=== PATIENT | female | born 1970 | race Caucasian/White ===

== ENCOUNTER 2019-09-16 09:34 | Emergency (ER) | payer BC ==
[2019-09-16 10:29] LABS: Absolute Lymphocytes (CBC) 1.5 K/uL (0.7-4.9); Basophils % 0.8 % (0-1.3); Hematocrit 52.7 % (36.0-45.0); Lymphocytes % 20.8 % (15.3-44.8); MPV 9.2 fL (7.6-11.3); RBC Red Blood Cell Count 5.53 M/uL (3.86-4.86)
[2019-09-16 10:31] LABS: Protime INR 0.96
[2019-09-16 10:46] LABS: ALT/SGPT 23 U/L (12-78); AST/SGOT 17 U/L (15-37); Albumin 4.2 g/dL (3.4-5.0); Alkaline Phosphatase 94 U/L (45-117); BUN Blood Urea Nitrogen 8 mg/dL (7-18); Bicarbonate 28 mmol/L (21-32); Bilirubin Direct 0.2 mg/dL (0-0.2); Bilirubin Total 0.4 mg/dL (0.2-1.0); Glucose Level 110 mg/dL (74-106); Magnesium 1.8 mg/dL (1.8-2.4); NT PRO-BNP 105 pg/mL (<125); Potassium 3.7 mmol/L (3.5-5.1); Protein, Total 8.3 g/dL (6.4-8.2); Sodium Level 137 mmol/L (136-145); Troponin (Emerg Dept Use Only) < 0.02 ng/mL (0.0-0.045)
--- NOTE | 2019-09-16 11:39 | RAD REPORT ---
EXAM DESCRIPTION: Liliya Single View09/16/2019 11:22 am CLINICAL HISTORY: Hypertension COMPARISON: 2017 FINDINGS: The lungs appear clear of acute infiltrate. The heart is normal size IMPRESSION: No acute abnormalities displayed
--- NOTE | 2019-09-16 11:45 | EDPHYS ---
Physician Documentation [facility] Name: Miguel A Shook Age: 49 yrs Sex: Female : 1970 Arrival Date: 09/16/2019 Time: 09:43 Bed 2 Private MD: ED Physician Lincoln Agrawal HPI: 09/15 10:03 This 49 yrs old Female presents to ER via Ambulatory with complaints of High kb Blood Pressure, Dizziness. 10:03 The patient has elevated blood pressure and discovered this at a physician's office. kb Onset: The symptoms/episode began/occurred yesterday. Associated signs and symptoms: Pertinent positives: dizziness, Pertinent negatives: chest pain, dyspnea, headache, lightheadedness, nausea, visual changes, vomiting, weakness. Severity of symptoms: At its worst the blood pressure was 180 mm Hg, in the emergency department the blood pressure is improved, mildly, 160 mm Hg. The patient has not experienced similar symptoms in the past. The patient has not recently seen a physician. Pt reports she went to the ENT yesterday and her bp was "180 over something." States she was feeling dizzy at work and was talking to a coworker about it and they told her she needed to get checked out. Went to [facility] and her bp was "170 over something" so the lady there said she needed to come to the ER. Reports she is not dizzy now. States "I just get dizzy sometimes when I am at work looking at the computer, then looking up and around, like vertigo." Pt denies shortness of breath, chest pain. States she doesn't take her BP routinely so she doesn't know her normal bp. States she has been told that her bp was elevated at prior dr's appointments, but no one ever said anything else about it. . EXTRA HAND: 09:51 LMP 06/2019 iw Historical: - Allergies: 09:51 No Known Allergies; iw - Home Meds: 09:51 None [Active]; iw - PMHx: 09:51 None; iw - PSHx: 09:51 None; iw - Immunization history:: Adult Immunizations not up to date. - Social history:: Smoking status: Patient reports the use of cigarette tobacco products, 3/4 ppd. ROS: 10:03 Constitutional: Negative for fever, chills, and weight loss, ENT: Negative for injury, kb pain, and discharge, Neck: Negative for injury, pain, and swelling, Cardiovascular: Negative for chest pain, palpitations, and edema, Respiratory: Negative for shortness of breath, cough, wheezing, and pleuritic chest pain, Abdomen/GI: Negative for abdominal pain, nausea, vomiting, diarrhea, and constipation, Back: Negative for injury and pain, MS/Extremity: Negative for injury and deformity, Skin: Negative for injury, rash, and discoloration. 10:03 Neuro: Positive for dizziness, headache, Negative for altered mental status, gait disturbance, hearing loss, loss of consciousness, numbness, seizure activity, speech changes, syncope, near syncope, tingling, tinnitus, tremor, visual changes, weakness. Exam: 10:03 Constitutional: This is a well developed, well nourished patient who is awake, alert, kb and in no acute distress. Head/Face: Normocephalic, atraumatic. ENT: Nares patent. No nasal discharge, no septal abnormalities noted. Tympanic membranes are normal and external auditory canals are clear. Oropharynx with no redness, swelling, or masses, exudates, or evidence of obstruction, uvula midline. Mucous membranes moist. Neck: Trachea midline, no thyromegaly or masses palpated, and no cervical lymphadenopathy. Supple, full range of motion without nuchal rigidity, or vertebral point tenderness. No Meningismus. Chest/axilla: Normal chest wall appearance and motion. Nontender with no deformity. No lesions are appreciated. Cardiovascular: Regular rate and rhythm with a normal S1 and S2. No gallops, murmurs, or rubs. Normal PMI, no JVD. No pulse deficits. Respiratory: Lungs have equal breath sounds bilaterally, clear to auscultation and percussion. No rales, rhonchi or wheezes noted. No increased work of breathing, no retractions or nasal flaring. Abdomen/GI: Soft, non-tender, with normal bowel sounds. No distension or tympany. No guarding or rebound. No evidence of tenderness throughout. Back: No spinal tenderness. No costovertebral tenderness. Full range of motion. Skin: Warm, dry with normal turgor. Normal color with no rashes, no lesions, and no evidence of cellulitis. MS/ Extremity: Pulses equal, no cyanosis. Neurovascular intact. Full, normal range of motion. Neuro: Awake and alert, GCS 15, oriented to person, place, time, and situation. Cranial nerves II-XII grossly intact. Motor strength 5/5 in all extremities. Sensory grossly intact. Cerebellar exam normal. Normal gait. 11:10 ECG was reviewed by the Attending Physician. kb Vital Signs: 09:48 BP 162 / 106; Pulse 98; Resp 16; Temp 97.8; Pulse Ox 100% on R/A; Weight 56.7 kg; iw Height 5 ft. 8 in. (172.72 cm); 10:00 BP 169 / 102; mh5 10:15 BP 146 / 104; mh5 10:30 BP 162 / 91; mh5 09:48 Body Mass Index 19.01 (56.70 kg, 172.72 cm) iw MDM: 09:55 Patient medically screened. kb 10:03 Data reviewed: vital signs, nurses notes. Data interpreted: Pulse oximetry: on room air kb is 100 %. Interpretation: normal. 11:42 Counseling: I had a detailed discussion with the patient and/or guardian regarding: the kb historical points, exam findings, and any diagnostic results supporting the discharge/admit diagnosis, lab results, radiology results, the need for outpatient follow up, a family practitioner, to return to the emergency department if symptoms worsen or persist or if there are any questions or concerns that arise at home. ED course: Pt remains asymptomatic at this time. Educated on diagnostics and need to follow up with PCP for BP management. Educated to call today to schedule a follow up appt and to keep BP log until then so Dr Knight can see BP trends. Educated on return precautions. Verbal understanding of all instructions received. . 11:46 Data reviewed: lab test result(s), EKG, radiologic studies. Test interpretation: by ED kb physician or midlevel provider: plain radiologic studies, neg for acute finding. 09/15 10:01 Order name: Basic Metabolic Panel; Complete Time: 10:48 kb 09/15 10:01 Order name: CBC with Diff; Complete Time: 10:35 kb 09/15 10:01 Order name: LFT's; Complete Time: 10:48 kb 09/15 10:01 Order name: Magnesium; Complete Time: 10:48 kb 09/15 10:01 Order name: NT PRO-BNP; Complete Time: 10:48 kb 09/15 10:01 Order name: PT-INR; Complete Time: 10:35 kb 09/15 10:01 Order name: Troponin (emerg Dept Use Only); Complete Time: 10:48 kb 09/15 10:01 Order name: XRAY Chest (1 view); Complete Time: 12:06 kb 09/15 10:01 Order name: EKG; Complete Time: 10:02 kb 09/15 10:01 Order name: Cardiac monitoring; Complete Time: 10:18 kb 09/15 10:01 Order name: EKG - Nurse/Tech; Complete Time: 11:22 kb 09/15 10:01 Order name: IV Saline Lock; Complete Time: 10:18 kb 09/15 10:01 Order name: Labs collected and sent; Complete Time: 10:18 kb 09/15 10:01 Order name: O2 Per Protocol; Complete Time: 10:18 kb 09/15 10:01 Order name: O2 Sat Monitoring; Complete Time: 10:19 kb EC:10 Rate is 68 beats/min. Rhythm is regular. QRS [place] is Normal. OK interval is normal at kb 126 msec. QRS interval is normal at 92 msec. QT interval is normal at 410 msec. Administered Medications: 12:21 Not Given (Physician Discretion): NS 0.9% 1000 ml IV at 1000 ml once iw Disposition: 17:15 Co-signature as Attending Physician, Lincoln Agrawal MD I agree with the assessment and kdr plan of care. Disposition: 09/16/19 11:44 Discharged to Home. Impression: Essential (primary) hypertension. - Condition is Stable. - Discharge Instructions: Hypertension, Sozt-gw-Gksy, How to Take Your Blood Pressure, Tvow-rs-Guhd, DASH Eating Plan, Managing Your Hypertension. - Medication Reconciliation Form, Thank You Letter, Antibiotic Education, Prescription Opioid Use form. - Follow up: Emergency Department; When: As needed; Reason: Worsening of condition. Follow up: Marquise Knight MD; When: 2 - 3 days; Reason: Recheck today's complaints, Continuance of care, Re-evaluation by your physician. Signatures: Dispatcher [employer] EDNV Rajan, Stefani, RN FLOAT-C RN FLOAT-Ckb Rittger, Lincoln, MD MD kdr Wilfrid, Akilah, RN RN iw Corrections: (The following items were deleted from the chart) 12:20 11:44 09/16/2019 11:44 Discharged to Home. Impression: Essential (primary) iw hypertension. Condition is Stable. Forms are Medication Reconciliation Form, Thank You Letter, Antibiotic Education, Prescription Opioid Use. Follow up: Emergency Department; When: As needed; Reason: Worsening of condition. Follow up: Marquise Knight; When: 2 - 3 days; Reason: Recheck today's complaints, Continuance of care, Re-evaluation by your physician. kb
--- NOTE | 2019-09-16 11:45 | ER ---
Nurse's Notes [facility] Name: Miguel A Shook Age: 49 yrs Sex: Female : 1970 Arrival Date: 09/16/2019 Time: 09:43 Bed 2 Private MD: Diagnosis: Essential (primary) hypertension Presentation: 09/15 09:48 Chief complaint: Patient states: had high BP reading at [facility] yesterday and today iw at [facility] was 174/130 pt does not take BP medication normally , has been feeling dizzy today and has mild headache. Coronavirus screen: The patient has NOT traveled to a country currently being monitored by the [facility] within the last 14 days. Proceed with normal triage procedures. The patient has NOT had contact with any known and/or suspected case of coronavirus. Proceed with normal triage procedures. Ebola Screen: Patient negative for fever greater than or equal to 101.5 degrees Fahrenheit, and additional compatible Ebola Virus Disease symptoms Patient denies exposure to infectious person. Patient denies travel to an Ebola-affected area in the 21 days before illness onset. No symptoms or risks identified at this time. Initial Sepsis Screen: Does the patient meet any 2 criteria? No. Patient's initial sepsis screen is negative. Does the patient have a suspected source of infection? No. Patient's initial sepsis screen is negative. Risk Assessment: Do you want to hurt yourself or someone else? Patient reports no desire to harm self or others. 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 - Social history:: Smoking status: Patient reports the use of cigarette tobacco products, 3/4 ppd. Vital Signs: 09:48 BP 162 / 106; Pulse 98; Resp 16; Temp 97.8; Pulse Ox 100% on R/A; Weight 56.7 kg; iw Height 5 ft. 8 in. (172.72 cm); 10:00 BP 169 / 102; mh5 10:15 BP 146 / 104; mh5 10:30 BP 162 / 91; mh5 09:48 Body Mass Index 19.01 (56.70 kg, 172.72 cm) iw ED Course: 09:43 Patient arrived in ED. mr 09:49 Triage completed. iw 09:51 Arm band placed on. iw 09:55 Stefani Tolentino [facility]-C [facility] kb 09:55 Lincoln Agrawal MD is Attending Physician. kb 10:04 Jose De Jesus Ruby, RN is Primary Nurse. jl7 10:19 Inserted saline lock: 20 gauge in right antecubital area, using aseptic technique. ss Blood collected. 10:32 Patient has correct armband on for positive identification. Placed in gown. Bed in low mh5 position. Call light in reach. Warm blanket given. radio performer on. Pulse ox on. NIBP on. 11:23 EKG done, by ED staff, reviewed by Lincoln Agrawal MD. 5 11:30 XRAY Chest (1 view) In Process Unspecified. EDMS 11:44 Marquise Knight MD is Referral Physician. kb Administered Medications: 12:21 Not Given (Physician Discretion): NS 0.9% 1000 ml IV at 1000 ml once iw Outcome: 11:44 Discharge ordered by MD. kb 12:20 Patient left the ED. iw Signatures: Dispatcher [employer] EDMS Stefani Tolentino FNP-C FNJulianne Brinda LewisAkilah, RN SYBIL Stephenie Collado, SYBIL DEVINE Sofiya Kendrick [facility] Jose De Jesus Ruby, RN RN jl7 Corrections: (The following items were deleted from the chart) 09:50 09:48 BP 184 / 117; Pulse 98bpm; Resp 16bpm; Pulse Ox 100% RA; Temp 97.8F; iw iw
[2019-09-16 12:55] VITALS: BP 162/106; TEMP 97.8; O2SAT 100
--- NOTE | 2019-09-16 16:47 | EKG ---
Test Date: 2019-09-16 Test Time: 11:01:37 Label Machine Operator: DINESH MEASUREMENT RESULTS: Intervals: Rate: 68 NM: 126 QRSD: 92 QT: 410 QTc: 435 [place]: P: 72 NM: 126 QRS: 72 T: 73 INTERPRETIVE STATEMENTS: Sinus rhythm with marked sinus arrhythmia Possible Left atrial enlargement Left ventricular hypertrophy Abnormal ECG Compared to ECG 08/25/2017 07:52:49 ST (T wave) deviation no longer present Electronically Signed On 09-16-19 16:47:24 GAS SYSTEMS WORKER by Kayode Hancock
== END 2019-09-16 12:20 | disposition home or self-care (01) ==
LOC: ER 09:34
DX: I10 Essential (primary) hypertension (principal); F17.210 Nicotine dependence, cigarettes, uncomplicated
CPT/HCPCS: 36415; 71045; 80048; 80076; 83735; 83880; 84484; 85025; 85610; 93005; 99284

== ENCOUNTER 2022-03-27 17:40 | Observation (INO) | payer BC ==
--- OUTSIDE RECORDS SUMMARY | 2022-03-27 17:44 | XMS REPORT | Continuity of Care Document ---
:1970 Author Organization [facility] t Address [address] [place] [address] Care Team Providers Name Role Phone Marquise Knight Primary Care Physician Doctor Unassigned, [place] Attending Clinician Unavailable Kai BARAHONA, Jack Attending Clinician Dario BARAHONA, [facility] Attending Clinician Payers Payer Name Policy Type Policy Number Effective Date Expiration Date S ource Problems Condition Condition Condition Status Onset Resolution Last Treating Co mments Source Name Details Category Date Date Treatment Clinician Date Renal Renal Disease Active Univers artery artery 9-15 ity [place] ro[place]sis 00 [facility] Hyperlipid Hyperlipid Disease Active U nivers emia, emia, 915 ity of unspecifie [place] 00 Medical hyperlipid hyperlipid Br anch emia type emia type Essential Essential Disease Active Uni vers hypertensi hypertensi 9-15 it y of on on 00:00: [address] PAD PAD Disease Active Univers (periphera (periphera 3-09 it y of l artery l artery 00:00: [place] disease) disease) 00 Medica l Branch Cigarette Cigarette Disease Active Uni vers smoker smoker 3-09 ity of 00:00: [place] [facility] Allergies, Adverse Reactions, Alerts Allergy Allergy Status Severity Reaction(s) Onset Inactive Treating Comm ents Source Name Type Date Date Clinician Doe Sheriff Active Other - See U nivers tin ty to comments 4-12 ity of adverse 00:00: [place] reaction 00 [facility] s Branch Atorscootert Irmaensi Active Swelling Univ ers atin ty to 9-15 ity of adverse 00:00: [place] reaction 00 Medical s Branch Social History Social Habit Start Date Stop Date Quantity Comments Source History of tobacco Cigarette Smoker [facility] of use Medicine Sex Assigned [facility] [place] [employer] [facility] Exposure to 2021-11-06 2021-11-16 Not sure University SARS-CoV-2 (event) 00:00:00 08:02:00 [facility] Alcohol intake 2021-03-28 2021-03-28 Current drinker Unive rsity of 00:00:00 00:00:00 of alcohol [facility] (finding) [place] Tobacco use and 2020-06-07 2020-06-07 Never used Universit y of exposure 00:00:00 00:00:00 [facility] Cigarettes smoked 2019-09-15 2019-09-15 [facility] (pack per 00:00:00 00:00:00 Medicin e day) - Reported Cigarette 2019-09-15 2019-09-15 [facility] of pack-years 00:00:00 00:00:00 Medicine Smoking Status Start Date Stop Date Source Current every day smoker 2019-09-15 00:00:00 [facility] Medications Ordered Filled Start Stop Current Ordering Indication Dosage Frequency Signature Comments Components Source Medication Medication Date Date Medication? Clinician (SIG) Name Name evolocumab Yes [id number] 140mg inject 140 Univers (REPATHA 5-20 mg under ity of SYRINGE) 00:00: the skin [place] 140 mg/mL 00 every 2 Medical Syrg (two) Branch weeks. evolocumab Yes [id number] 140mg inject 140 Univers (REPATHA 5-20 mg under ity of S[place]INGE) 00:00: the skin [place] 140 mg/mL 00 every 2 Medical Syrg (two) Branch weeks. amLODIPine Yes [id number] 10mg Take 1 U nivers 10 mg 4-12 tablet by ity of tablet 00:00: mouth [place] 00 daily. Medical Branch metoprolol Yes [id number] 50mg Take 1 U nivers succinate 4-12 tablet by ity o f XL 50 mg 24 00:00: mouth [place] hr tablet 00 daily. Medical Branch lisinopriL Yes [id number] 20mg Take 1 Univers 20 mg 4-12 tablet by ity of tablet 00:00: mouth [place] 00 daily. Medical Branch amLODIPine Yes [id number] 10mg Take 1 U nivers 10 mg 4-12 tablet by ity of tablet 00:00: mouth [place] 00 daily. Medical Branch metoprolol Yes [id number] 50mg Take 1 U nivers succinate 4-12 tablet by ity o f XL 50 mg 24 00:00: mouth [place] hr tablet 00 daily. Medical Branch lisinopriL Yes [id number] 20mg Take 1 Univers 20 mg 4-12 tablet by ity of tablet 00:00: mouth [place] 00 daily. Medical Branch aspirin 81 2019-07 Yes [id number] 81mg Take 1 Univers mg EC 2-09 4100 tablet by ity of tablet 00:00: mouth [place] 00 daily. Medical Branch aspirin 81 2019-07 Yes [id number] 81mg Take 1 Univers mg EC 2-09 4100 tablet by ity of tablet 00:00: mouth [place] 00 daily. Medical Branch ciprofloxac 2018-07 Yes Apply 4 [place] estrella in-dexameth 2-11 drops in [place] ege asone 00:00: right ear of (CIPRODEX) 00 twice a Medici n otic day for 10 e suspension days. Vital Signs Vital Name Observation Time Observation Value Comments Source Body height 2019-09-15 23:03:00 172.7 cm [facility] Body weight 2019-09-15 23:03:00 52.164 kg [facility] BMI 2019-09-15 23:03:00 17.49 kg/m2 [facility] Respiratory rate 2019-09-15 23:03:00 18 /min [facility] Procedures Procedure Date / Time Performing Clinician Source Performed MEDICATION CORRESPONDENCE 2021-12-17 05:01:00 Doctor Unassigned, [facility] [place] [facility] Plan of Care Planned Activity Planned Date Details Comments Source Future Scheduled Test COLON CANCER SCREENING: [facility] COLONOSCOPY [code = Medicine COLON CANCER SCREENING: COLONOSCOPY] Future Scheduled Test MAMMOGRAM ANNUAL [code [facility] = MAMMOGRAM ANNUAL] Medicine Future Scheduled Test TETANUS SHOT (ADULT) [facility] [code = TETANUS SHOT Medicin e (ADULT)] Future Scheduled Test BMI FOLLOW UP PLAN [facility] [code = BMI FOLLOW UP Medici ne PLAN] Future Scheduled Test HIV SCREENING [code = [facility] HIV SCREENING] Medicine Future Scheduled Test CERVICAL CANCER [facility] SCREENING 3 YEAR FOLLOW [facility] cine UP [code = CERVICAL CANCER SCREENING 3 YEAR FOLLOW UP] Future Scheduled Test FLU VACCINE > 6 MONTHS [facility] [code = FLU VACCINE > 6 Medi cine MONTHS] Encounters Start End Encounter Admission Attending Care Care Encounter Source Date/Time Date/Time Type Type Clinicians Facility Department ID 2021-12-17 2021-12-17 Orders Doctor BA [id number] Univers 00:00:00 00:00:00 Only Unassigned, AMADO [id number] ity of [place] [facility] [id number] Moses as [id number] [facility] rafael 009 Branch 2021-12-03 2021-12-03 Telephone [facility], [facility] [id number] Univers 00:00:00 00:00:00 Jack WATSON [id number] [place]y [id number] [id number] Mo dical NAL [address] [facility] 2019-09-15 2019-09-15 Office MELISSA Bishop [id number] [facility] [place] 14:51:56 17:14:06 Visit [facility] AMBULATOR [id number] [employer] Y [id number] of [phone] [facility] zuleima 800 e Results This patient has no known results.
[2022-03-27] MEDS ORDERED: ONDANSETRON 4 MG/2 ML VIAL ONE (21:56)
[2022-03-27] MEDS ORDERED: MORPHINE 4 MG/ML SYR ONE (21:56)
[2022-03-27] MEDS ORDERED: NA CHLORIDE 0.9% 1,000 ML ONE (21:56)
[2022-03-27 22:02] LABS: Absolute Lymphocytes (CBC) 1.9 K/uL (0.7-4.9); Hematocrit 43.7 % (36.0-45.0); Lymphocytes % 25.2 % (15.3-44.8); MPV 8.5 fL (7.6-11.3); RBC Red Blood Cell Count 4.75 M/uL (3.86-4.86)
[2022-03-27 22:18] LABS: Albumin 3.6 g/dL (3.4-5.0); Bilirubin Total 0.6 mg/dL (0.2-1.0); Potassium 4.1 mmol/L (3.5-5.1); Protein, Total 7.4 g/dL (6.4-8.2)
--- NOTE | 2022-03-27 23:06 | RAD REPORT ---
EXAM DESCRIPTION: CTAbdomen Pelvis W Contrast - 03/27/2022 10:51 pm CLINICAL HISTORY: RLQ abdominal pain COMPARISON: No comparisons TECHNIQUE: CT of the abdomen and pelvis was performed. All CT scans are performed using dose optimization technique as appropriate and may include automated exposure control or mA/KV adjustment according to patient size. FINDINGS: Lower chest: No acute abnormality. Liver: No acute abnormality or suspicious lesions. Biliary: Cholelithiasis. Stomach: No significant focal abnormality. Duodenum: No significant focal abnormality. Pancreas: No significant abnormality. Spleen: No significant abnormality. Adrenal: No suspicious lesions. Kidney/ureter: No hydronephrosis. No renal calculi. Retroperitoneum: No retroperitoneal adenopathy. Vascular: No aneurysm. Atherosclerosis. Bowel: Dilated retrocecal appendix containing fluid and mild periappendiceal stranding.. No bowel obs truction. Peritoneum: No ascites or free air. Bladder: Grossly unremarkable. Reproductive: No adnexal masses. Bones: No acute fracture. Moderate disc height loss L5-S1. Other: n/a IMPRESSION: 1. Mildly dilated appendix suspicious for early or mild acute appendicitis. 2. Cholelithiasis without CT evidence of acute cholecystitis.
--- NOTE | 2022-03-27 23:23 | EDPHYS ---
Physician Documentation [facility] Name: Miguel A Shook Age: 52 yrs Sex: Female : 1970 Arrival Date: 03/27/2022 Time: 17:46 Bed 15 Private MD: ED Physician Lincoln Agrawal HPI: 03/27 23:38 This 52 yrs old Female presents to ER via Ambulatory with complaints of Abdominal Pain, kb Diarrhea, Vomiting. 23:38 The patient presents with abdominal pain right lower quadrant. Onset: The kb symptoms/episode began/occurred yesterday. The symptoms do not radiate. Associated signs and symptoms: Pertinent positives: diarrhea, nausea, Pertinent negatives: fever, vomiting. The symptoms are described as constant. Modifying factors: The symptoms are alleviated by nothing, the symptoms are aggravated by pressure. Severity of pain: At its worst the pain was moderate in the emergency department the pain is unchanged. The patient has not experienced similar symptoms in the past. The patient has been recently seen by a physician: the patient's primary care provider, earlier today, with similar presenting complaints, and was sent to the [facility] Emergency Department for further evaluation. Pt reports diffuse abd pain that started yesterday, today pain has localized to RLQ. Reports diarrhea and nausea. . 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 - Social history:: Smoking status: Patient reports the use of cigarette tobacco products, smokes one pack cigarettes per day. ROS: 23:37 Constitutional: Negative for fever, chills, and weight loss. kb 23:37 Abdomen/GI: Positive for abdominal pain, nausea, diarrhea. 23:37 All other systems are negative. Exam: 23:37 Constitutional: This is a well developed, well nourished patient who is awake, alert, kb and in no acute distress. Head/Face: Normocephalic, atraumatic. ENT: Moist Mucous membranes Cardiovascular: Regular rate and rhythm with a normal S1 and S2. No gallops, murmurs, or rubs. No pulse deficits. Respiratory: Respirations even and unlabored. No increased work of breathing. Talking in full sentences Skin: Warm, dry with normal turgor. Normal color. MS/ Extremity: Pulses equal, no cyanosis. Neurovascular intact. Full, normal range of motion. Neuro: Awake and alert, GCS 15, oriented to person, place, time, and situation. Moves all extremities. Normal gait. Psych: Awake, alert, with orientation to person, place and time. Behavior, mood, and affect are within normal limits. 23:37 Abdomen/GI: Inspection: abdomen appears normal, Bowel sounds: normal, Palpation: soft, in all quadrants, moderate abdominal tenderness, in the right lower quadrant, Indicators: Rovsing's sign is positive. Vital Signs: 19:02 BP 165 / 82; Pulse 62; Resp 16; Temp 98.1(TE); Pulse Ox 99% on R/A; Weight 59.87 kg; tp1 Height 5 ft. 8 in. (172.72 cm); 21:44 BP 147 / 97; Pulse 70; Resp 16; Pulse Ox 100% on R/A; Pain 8/10; bm7 22:50 BP 150 / 85; Pulse 74; Resp 16; Pulse Ox 100% on R/A; Pain 5/10; bm7 23:55 BP 129 / 86; Pulse 74; Resp 17 S; Pulse Ox 100% on R/A; lg3 19:02 Body Mass Index 20.07 (59.87 kg, 172.72 cm) tp1 MDM: 20:22 Patient medically screened. kb 23:21 Data reviewed: vital signs, nurses notes. Data interpreted: Pulse oximetry: on room air kb is 100 %. Interpretation: normal. Counseling: I had a detailed discussion with the patient and/or guardian regarding: the historical points, exam findings, and any diagnostic results supporting the discharge/admit diagnosis, lab results, radiology results, the need for further work-up and treatment in the hospital. Physician consultation: Ranjan Carrera MD was contacted at 23:21, regarding admission, consult, patient's condition, and will see patient in inpatient room. 03/27 20:13 Order name: CBC with Diff; Complete Time: 22:41 kb 03/27 20:13 Order name: CMP; Complete Time: 22:22 kb 03/27 20:13 Order name: Lipase; Complete Time: 22:22 kb 03/27 20:22 Order name: CT Abd/Pelvis - IV Contrast Only; Complete Time: 23:11 kb 03/27 23:25 Order name: SARS RAPID; Complete Time: 00:29 lg3 03/27 20:13 Order name: IV Saline Lock; Complete Time: 21:43 kb 03/27 20:13 Order name: Labs collected and sent; Complete Time: 21:43 kb Administered Medications: 21:51 Drug: morphine 4 mg Route: IVP; Infused Over: 4 mins; Site: left antecubital; bm7 23:25 Follow up: Response: No adverse reaction; Marked relief of symptoms lg3 21:51 Drug: Zofran (Ondansetron) 4 mg Route: IVP; Site: left antecubital; bm7 23:25 Follow up: Response: No adverse reaction; Marked relief of symptoms lg3 21:51 Drug: NS 0.9% 1000 ml Route: IV; Rate: 1000 ml; Site: left antecubital; bm7 23:23 Follow up: Response: No adverse reaction; IV Status: Completed infusion; IV Intake: lg3 1000ml 23:52 Drug: Rocephin (cefTRIAXone) 1 grams Route: IV; Rate: calculated rate; Site: left lg3 antecubital; 23:54 Follow up: Response: No adverse reaction; IV Status: Completed infusion; IV Intake: [id number] 23:52 Drug: Flagyl (metroNIDAZOLE) 500 mg Volume: 100 ml; Route: IVPB; Rate: 200 ml/hr; lg3 Infused Over: 30 mins; Site: left antecubital; 23:54 Follow up: Response: No adverse reaction; IV Status: Completed infusion; IV Intake: lg3 100ml Disposition: 03/28 05:55 I agree with the assessment and plan of care. kdr Disposition Summary: 03/27/22 23:22 Hospitalization Ordered Hospitalization Status: Observation kb Provider: Ranjan Carrera Condition: Stable kb Problem: new kb Symptoms: are unchanged kb Bed/Room Type: Standard kb [facility]22 00:28[facility] cg Room Assignment: [facility](03/28/22 00:28) Diagnosis - Unspecified acute appendicitis kb Forms: - Medication Reconciliation Form kb - SBAR form Signatures: Dispatcher [employer] EDStefani Vital, ALKYLATION OPERATORLincoln Rosas MD MD kdr Garcia, Cindy, RN RN Komal Pozo RN RN lg3 Claire Tadeo, SYBIL RN bm7 Molly Gracia RN RN tp1 Corrections: (The following items were deleted from the chart) 00:03/27 23:22 Telemetry/MedSurg (observation) [facility] 03/28 00:03/27 23:22 [facility]
--- NOTE | 2022-03-27 23:23 | ER ---
Nurse's Notes [facility] Name: Miguel A Shook Age: 52 yrs Sex: Female : 1970 Arrival Date: 03/27/2022 Time: 17:46 Bed 15 Private MD: Diagnosis: Unspecified acute appendicitis Presentation: 03/27 19:02 Chief complaint: Patient states: CO diarrhea and ABD pain yesterday. Right sided pain tp1 last night that has gradually gotten worse. reports nausea. Denies vomiting. Coronavirus screen: Vaccine status: Patient reports being unvaccinated. Ebola Screen: Patient negative for fever greater than or equal to 101.5 degrees Fahrenheit, and additional compatible Ebola Virus Disease symptoms Patient denies exposure to infectious person. Patient denies travel to an Ebola-affected area in the 21 days before illness onset. Initial Sepsis Screen:. Risk Assessment: Do you want to hurt yourself or someone else? Patient reports no desire to harm self or others. Onset of symptoms was March 26, 2022. 19:02 Method Of Arrival: Ambulatory tp1 19:02 Acuity: JJ 3 tp1 19:02 Initial Sepsis Screen: Does the patient meet any 2 criteria? No. Patient's initial tp1 sepsis screen is negative. Does the patient have a suspected source of infection? No. Patient's initial sepsis screen is negative. Triage Assessment: 19:05 General: Appears in no apparent distress. uncomfortable, Behavior is calm, cooperative. tp1 Pain: Complains of pain in right lower quadrant Pain does not radiate. Pain currently is 6 out of 10 on a pain scale. Quality of pain is described as sharp, shooting, Is intermittent. Neuro: Level of Consciousness is awake, alert, obeys commands, Oriented to person, place, time, situation. Cardiovascular: Patient's skin is warm and dry. Respiratory: Airway is patent Respiratory effort is even, unlabored. GI: Abdomen is flat, non-distended, Abd is soft Abdomen is tender to palpation in right lower quadrant Reports nausea, Patient currently denies diarrhea, vomiting. 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 - Social history:: Smoking status: Patient reports the use of cigarette tobacco products, smokes one pack cigarettes per day. Screenin:52 Abuse screen: Denies threats or abuse. Nutritional screening: No deficits noted. bm7 Tuberculosis screening: No symptoms or risk factors identified. Fall Risk None identified. Assessment: 21:52 Reassessment: No changes from previously documented assessment. Patient and/or family bm7 updated on plan of care and expected duration. Pain level reassessed. Patient is alert, oriented x 3, equal unlabored respirations, skin warm/dry/pink. 23:55 General: Appears in no apparent distress. comfortable, Behavior is calm, cooperative. lg3 Pain: Complains of pain in right lower quadrant Pain does not radiate. Pain currently is 4 out of 10 on a pain scale. Neuro: No deficits noted. Mariscal Agitation-Sedation Scale (RASS): 0 - Alert and Calm Level of Consciousness is awake, alert, obeys commands, Oriented to person, place, time, situation. Cardiovascular: No deficits noted. Denies chest pain, shortness of breath, Capillary refill < 3 seconds Clubbing of nail beds is absent JVD is absent Patient's skin is warm and dry. Respiratory: No deficits noted. Airway is patent Trachea midline Respiratory effort is even, unlabored, Respiratory pattern is regular, symmetrical, Breath sounds are clear bilaterally. GI: Abdomen is flat, non-distended, Bowel sounds present X 4 quads. Abd is soft X 4 quads Abdomen is tender to palpation in right lower quadrant Reports lower abdominal pain, cramping, nausea. : No deficits noted. No signs and/or symptoms were reported regarding the genitourinary system. EENT: No deficits noted. No signs and/or symptoms were reported regarding the EENT system. Derm: No deficits noted. No signs and/or symptoms reported regarding the dermatologic system. Skin is intact, is healthy with good turgor, Skin is dry, Skin is normal, Skin temperature is warm. Musculoskeletal: No deficits noted. No signs and/or symptoms reported regarding the musculoskeletal system. Circulation, motion, and sensation intact. Range of motion: intact in all extremities. Vital Signs: 19:02 BP 165 / 82; Pulse 62; Resp 16; Temp 98.1(TE); Pulse Ox 99% on R/A; Weight 59.87 kg; tp1 Height 5 ft. 8 in. (172.72 cm); 21:44 BP 147 / 97; Pulse 70; Resp 16; Pulse Ox 100% on R/A; Pain 8/10; bm7 22:50 BP 150 / 85; Pulse 74; Resp 16; Pulse Ox 100% on R/A; Pain 5/10; bm7 23:55 BP 129 / 86; Pulse 74; Resp 17 S; Pulse Ox 100% on R/A; lg3 19:02 Body Mass Index 20.07 (59.87 kg, 172.72 cm) tp1 ED Course: 17:46 Patient arrived in ED. mr 19:04 Triage completed. tp1 19:08 Arm band placed on. tp1 20:11 Stefani Tolentino FNP-C is [facility]. kb 20:11 Lincoln Agrawal MD is Attending Physician. kb 21:14 Claire Tadeo, RN is Primary Nurse. bm7 21:52 No apparent distress. Resting quietly. Awaiting CT Scan. bm7 21:52 Patient has correct armband on for positive identification. Placed in gown. Bed in low bm7 position. Call light in reach. Side rails up X2. Adult w/ patient. Client placed on continuous cardiac and pulse oximetry monitoring. NIBP monitoring applied. Warm blanket given. 21:52 No provider procedures requiring assistance completed. Initial lab(s) drawn, by vt, bm7 sent to lab. Inserted saline lock: 20 gauge in left antecubital area, using aseptic technique. Blood collected. Patient maintains SpO2 saturation greater than 95% on room air. 22:50 Patient moved back from CT. bm7 22:53 CT Abd/Pelvis - IV Contrast Only In Process Unspecified. EDMS 23:22 Ranjan Carrera MD is Hospitalizing Provider. kb 23:52 SARS RAPID Sent. lg3 03/28 01:26 Patient admitted, IV remains in place. intact, No redness/swelling at site. lg3 Administered Medications: 03/27 21:51 Drug: morphine 4 mg Route: IVP; Infused Over: 4 mins; Site: left antecubital; bm7 23:25 Follow up: Response: No adverse reaction; Marked relief of symptoms lg3 21:51 Drug: Zofran (Ondansetron) 4 mg Route: IVP; Site: left antecubital; bm7 23:25 Follow up: Response: No adverse reaction; Marked relief of symptoms lg3 21:51 Drug: NS 0.9% 1000 ml Route: IV; Rate: 1000 ml; Site: left antecubital; bm7 23:23 Follow up: Response: No adverse reaction; IV Status: Completed infusion; IV Intake: lg3 1000ml 23:52 Drug: Rocephin (cefTRIAXone) 1 grams Route: IV; Rate: calculated rate; Site: left lg3 antecubital; 23:54 Follow up: Response: No adverse reaction; IV Status: Completed infusion; IV Intake: [id number] 23:52 Drug: Flagyl (metroNIDAZOLE) 500 mg Volume: 100 ml; Route: IVPB; Rate: 200 ml/hr; lg3 Infused Over: 30 mins; Site: left antecubital; 23:54 Follow up: Response: No adverse reaction; IV Status: Completed infusion; IV Intake: lg3 100ml Medication: 21:52 VIS not applicable for this client. bm7 Intake: 23:23 IV: 1000ml; Total: 1000ml. lg3 23:54 IV: 10ml; Total: 1010ml. lg3 23:54 IV: 100ml; Total: 1110ml. lg3 Outcome: 23:22 Decision to Hospitalize by Provider. 03/28 01:26 Admitted to L \T\ D, accompanied by nurse, via wheelchair, room 270, Report called to sergio Cruz RN Condition: stable Instructed on the need for admit, Demonstrated understanding of instructions. 01:43 Patient left the ED. lg3 Signatures: Dispatcher [employer] EDMS Stefani Tolentino, ALEC BARKSDALEP-Brinda Liu Lacie RN RN lg3 Claire Tadeo, SYBIL DEVINE bm7 Molly Gracia RN RN tp1
[2022-03-27] MEDS ORDERED: CEFTRIAXONE 1000 MG/VIAL ONE (23:50)
[2022-03-27] MEDS ORDERED: METRONIDAZOLE 500mg IVPB 500 MG/100 ML BAG IV ONE (23:50)
[2022-03-28 00:25] LABS: SARS-CoV-2 Antigen Rapid Res Negative (Negative)
[2022-03-28] MEDS ORDERED: MORPHINE 4 MG/ML SYR IV PRN (00:37)
[2022-03-28] MEDS ORDERED: ONDANSETRON 4 MG/2 ML VIAL IV PRN (00:37)
[2022-03-28] MEDS ORDERED: ACETAMINOPHEN 500 MG TAB PO PRN (00:37)
[2022-03-28 01:15] VITALS: BMI 20.3
[2022-03-28] MEDS: NA CHLORIDE 0.9% 1,000 ML IV SCH ×3 (01:19→22:44)
[2022-03-28 05:37] LABS: Absolute Lymphocytes (CBC) 1.7 K/uL (0.7-4.9); Hematocrit 40.9 % (36.0-45.0); Lymphocytes % 34.1 % (15.3-44.8); MCV 92.3 fL (80-100); MPV 8.6 fL (7.6-11.3); RBC Red Blood Cell Count 4.43 M/uL (3.86-4.86)
[2022-03-28] MEDS: CEFTRIAXONE 1,000 MG in NA CHLORIDE 0.9% 50 ML IVPB SCH ×2 (08:40→20:38)
[2022-03-28] MEDS: METRONIDAZOLE 500mg IVPB 500 MG/100 ML BAG IV SCH ×2 (09:49→17:19)
[2022-03-28] MEDS ORDERED: NA CHLORIDE 0.9% 1,000 ML ONE (11:43)
[2022-03-28] MEDS ORDERED: FENTANYL CITR 100 MCG/2 ML ONE (12:13)
[2022-03-28] MEDS ORDERED: propofoL 200 MG/20 ML VIAL IV ONE (12:13)
[2022-03-28] MEDS ORDERED: LIDOCAINE 2% MPF 5 ML VIAL ONE (12:14)
[2022-03-28] MEDS ORDERED: MIDAZOLAM HCL 2 MG/2 ML INJ ONE (12:15)
[2022-03-28] MEDS ORDERED: ONDANSETRON 4 MG/2 ML VIAL ONE ×2 (12:15→14:07)
[2022-03-28] MEDS ORDERED: GLYCOPYRROLATE 0.2 MG/ML SYR ONE ×2 (12:16)
[2022-03-28] MEDS ORDERED: ROCURONIUM 50 MG/5 ML VIAL IV ONE (12:16)
[2022-03-28] MEDS ORDERED: NEOSTIGMINE 1 MG/ML -10 ML VIAL ONE (12:20)
[2022-03-28] MEDS ORDERED: dexAMETHasone 10 MG/ML VIAL ONE (12:23)
--- NOTE | 2022-03-28 12:38 | P.HP ---
Date of Service: 03/28/22 PC: This 52-year-old female presented to emergency room with abdominal pain nausea and vomiting for diagnosis and treatment HPC: Patient admitted recently been traveling. Noticed that she started having abdominal pain. Not specifically located to the right lower quadrant. Pain intensified throughout the day, now hurts even when she walks. Laying still she is fine. 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 No chest pain or palpitations. Denies any urinary complaints O/E: Wake alert vital signs are stable HEENT: Within normal limits Chest: Chest movement equal bilaterally Abd: Tender with mild guarding in the right lower quadrant [place]: Intact Data: CT scan demonstrates appendicitis, white cell count normal Impression: Acute abdomen with appendicitis Plan: I will taken to the operating room for laparoscopic possible open appendectomy. The risks of this procedure have been discussed. The possibility of bleeding, infection, injury to bowel blood vessels and surrounding structures was outlined. The possibility of needing further surgeries and procedures was discussed. She understands and wants to proceed.
[2022-03-28] MEDS ORDERED: SUCCINYLCHOLINE 20 MG/ML (10 ML) IV ONE (12:47)
--- NOTE | 2022-03-28 13:44 | P.OP ---
Preoperative diagnosis: Acute abdomen Postoperative diagnosis: Acute appendicitis Primary procedure: Laparoscopic appendectomy Secondary procedure: Tap block Anesthesia: General Estimated blood loss: Less than 10 cc Specimen: 1 appendix Operative Technique: The patient brought the operating room and placed supine on the table. After the induction of adequate general endotracheal anesthesia, there the abdomen was prepped with a iodine solution, a Lo catheter was inserted, she was draped in usual aseptic manner After injecting with 0.25% Marcaine at the umbilicus a skin incision was made. This was brought down through the skin and subcutaneous tissue. The fascia was encountered. The Veress needle was now taken and inserted into the peritoneal cavity. Having got a positive click on the needle, doing a hanging drop test, and insufflating gently at insufflation pressure, were able to created pneumoperitoneum to approximately 12 mmHg. At this point a 5 mm trocar was introduced at the umbilicus. The camera was placed into the peritoneal cavity. We were now able to visualize the anterior abdominal wall. We lifted the right upper portion of the abdomen. After doing a tap block with 0.25% Marcaine, a skin incision was made. A 5 mm trocar was now placed in this area. Looking back with the camera now in this right upper quadrant position we were able to place a 12 mm trocar at the umbilicus, and a 5 mm trocar in the lower midline. The patient was now placed in Trendelenburg, with a roll to the left. We can visualize the right lower quadrant. The appendix was noted to be markedly inflamed. It was attached to a rather mobile cecum in this area. There was peritoneal wrappings around it which gave it that retroperitoneal appearance on CT. The junction of the appendix with the cecum was identified. A window was made in the mesentery of the appendix. It was now possible to pass our linear stapler across the junction of the cecum with the appendix. The instrument was fired. The mesentery was now taken down using electrocautery. At this point the specimen was placed into the Endo Close, and brought out through the umbilical trocar site. Attention was turned towards the rest of the peritoneal cavity. Adequate hemostasis having been ensured, the patient was returned to the neutral position on the OR table. The umbilical fascial defect was approximated using the Endo Close and an absorbable suture. 0.25% Marcaine was then again injected into the incision sites, and the suture was tied. Having removed the trochars and deflating the peritoneum, cammie were applied to the skin. At the end of the procedure she was stable when sent to the recovery room. Needle sponge and instrument count were correct. No drains were placed. Complications: None Transferred to: Recovery Room Condition: Good
[2022-03-28] MEDS: FENTANYL CITR 100 MCG/2 ML ONE ×2 (14:05→14:15)
[2022-03-28] MEDS ORDERED: KETOROLAC 30 MG/ML INJ ONE (14:09)
[2022-03-28 14:26] VITALS: O2SAT 96
[2022-03-28] MEDS: HYDROCODONE/APAP 7.5/325 MG TAB PO PRN ×2 (17:33→22:42)
[2022-03-29] MEDS: METRONIDAZOLE 500mg IVPB 500 MG/100 ML BAG IV SCH ×2 (00:48→09:40)
[2022-03-29] MEDS: NA CHLORIDE 0.9% 1,000 ML IV SCH (07:30)
[2022-03-29] MEDS: CEFTRIAXONE 1,000 MG in NA CHLORIDE 0.9% 50 ML IVPB SCH (08:57)
[2022-03-29 09:10] VITALS: BP 131/68; TEMP 97.2
== END 2022-03-29 11:55 | disposition home or self-care (01) ==
LOC: ER 17:40 → ERHOLD 23:41 → 2ND-WC 03-28 00:35
PROVIDERS: ADMIT Surgery; ATTEND Surgery
PROC: 0DTJ4ZZ Resection of Appendix, Percutaneous Endoscopic Approach (ICD-10-PCS; principal; 2022-03-27)
DX: K35.80 Unspecified acute appendicitis (principal); I10 Essential (primary) hypertension; F17.210 Nicotine dependence, cigarettes, uncomplicated; Z79.899 Other long term (current) drug therapy; Z28.310 Unvaccinated for COVID-19; Z20.822 Contact with and (suspected) exposure to COVID-19
CPT/HCPCS: 96361; 85025 ×2; 80048; 36415; 88304; 83690; 80053; 74177; 94010; 96375; 96374; 99285; 87811; 44970; Q9967; J2704; J2710; J0330; J2001; J2250; J3010 ×2; J1100; J7030 ×6; J2405 ×3; G0378

== ENCOUNTER 2023-10-09 17:17 | Observation (INO) | payer BC ==
--- OUTSIDE RECORDS SUMMARY | 2023-10-09 17:23 | XMS REPORT | Continuity of Care Document ---
Author Name Unknown Address [address] [facility] [place] [address] [facility] thconnect Address [address] [facility] [address] [place] [address] Care Team Providers Care Research Associate Policy Name Role Phone Eugene Marquise Lang Primary Care Physician [phone] JACK FONTENOT Attending Clinician Unavailable Corie BARAHONA, Jack Attending Clinician [phone] Doctor Unassigned, [place] Attending Clinician [facility], [facility] Lab Attending Clinician Unavailable Garrett BARAHONA, Lisa Bullock Attending Clinician [phone] Pc, [facility] Room 1 - Attending Clinician Un available [place] BARAHONA, Dexter Ferrer Attending Clinician [phone] , 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 Disease Active 03-28 00:00: 00 [facility] Hyperlipid emia, unspecifie d hyperlipid emia type Hyperlipid emia, unspecifie d hyperlipid emia type Disease Active 03-28 00:00: 00 [facility] Essential hypertensi on Essential hypertensi on Disease Active 15 00:00: 00 [facility] PAD (periphera l artery disease) PAD (periphera l artery disease) Disease Active 3- 00:00: 00 [facility] Cigarette smoker Cigarette smoker Disease Active 3 00:00: 00 [facility] Allergies, Adverse Reactions, Alerts Allergy Name Allergy Type Status Severity Reaction(s) Onset Date Inactive Date Treating Clinician Comments Source Pravasta tin Propensi ty to adverse reaction s Active Other - See comments 10-23 00:00: 00 [facility] PRAVASTA TIN DRUG INGREDI Active Other-Cmnt 10-23 00:00: 00 [facility] Atorvast atin Propensi ty to adverse reaction s Active Swelling 03-28 00:00: 00 [facility] ATORVAST ATIN DRUG INGREDI Active Swelling 03-28 00:00: 00 [facility] Social History Social Habit Start Date Stop Date Quantity Comments Source History of tobacco use Cigarette Smoker [facility] Gender identity [facility] Sexual orientation U [facility] Exposure to SARS-CoV-2 (event) 2022-10-13 00:00:00 2022-10-23 15:45:00 Not sure [facility] Cigarettes smoked current (pack per day) - Reported 2022-10-23 00:00:00 2022-10-23 00:00:00 [facility] Cigarette pack-years 2022-10-23 00:00:00 2022-10-23 00:00:00 [facility] Tobacco use and exposure 2022-10-23 00:00:00 2022-10-23 00:00:00 Smokeless tobacco non-user [facility] Alcohol intake 2022-10-23 00:00:00 2022-10-23 00:00:00 Current drinker of alcohol (finding) [facility] History of Social function 2022-10-23 00:00:00 2022-10-23 00:00:00 [facility] Sex Ass[birth year] At 1970 00:00:00 1970 00:00:00 [facility] Smoking Status Start Date Stop Date Source Smokes tobacco daily 2022-10-23 00:00:00 [facility] Medications Ordered Medication Name Filled Medication Name Start Date Stop Date Current Medication? Ordering Clinician Indication Dosage Frequency Signature (SIG) Comments Components Source metoprolol succinate XL 50 mg 24 hr tablet 08-28 00:00: 00 Yes [id number] 50mg Take 1 tablet by mouth in the morning. [facility] metoprolol succinate XL 50 mg 24 hr tablet 2022-07 00:00: 00 Yes [id number] 50mg Take 1 tablet by mouth in the morning. [facility] metoprolol succinate XL 50 mg 24 hr tablet 2022-07 00:00: 00 Yes [id number] 50mg Take 1 tablet by mouth in the morning. [facility] metoprolol succinate XL 50 mg 24 hr tablet 2022-07 00:00: 00 08-28 00:00 :00 No [id number] 50mg Take 1 tablet by mouth in the morning. [facility] rosuvastati n 5 mg tablet 2022-07 00:00: 00 Yes [id number] 5mg Take 1 tablet by mouth in the morning. [facility] rosuvastati n 5 mg tablet 2022-07 00:00: 00 Yes [id number] 5mg Take 1 tablet by mouth in the morning. [facility] rosuvastati n 5 mg tablet 2022-07 00:00: 00 Yes [id number] 5mg Take 1 tablet by mouth in the morning. [facility] rosuvastati n 5 mg tablet 2022-07 00:00: 00 Yes [id number] 5mg Take 1 tablet by mouth in the morning. [facility] rosuvastati n 5 mg tablet 2022-07 00:00: 00 Yes [id number] 5mg Take 1 tablet by mouth in the morning. [facility] rosuvastati n 5 mg tablet 2022-1 0-10 00:00: 00 Yes [id number] 5mg Take 1 tablet by mouth in the morning. [facility] rosuvastati n 5 mg tablet 2022-1 0-10 00:00: 00 Yes [id number] 5mg Take 1 tablet by mouth in the morning. [facility] rosuvastati n 5 mg tablet 2022-1 0-10 00:00: 00 Yes [id number] 5mg Take 1 tablet by mouth in the morning. [facility] rosuvastati n 5 mg tablet 2022-07 0-10 00:00: 00 05-22 00:00 :00 No [id number] 5mg Take 1 tablet by mouth in the morning. [facility] amLODIPine 10 mg tablet 2022-0 6-12 00:00: 00 Yes [id number] 10mg Take 1 tablet by mouth in the morning. [facility] amLODIPine 10 mg tablet 2022-0 6-12 00:00: 00 Yes [id number] 10mg Take 1 tablet by mouth in the morning. [facility] amLODIPine 10 mg tablet 2022-0 6-12 00:00: 00 Yes [id number] 10mg Take 1 tablet by mouth in the morning. [facility] amLODIPine 10 mg tablet 2022-0 6-12 00:00: 00 Yes [id number] 10mg Take 1 tablet by mouth in the morning. [facility] amLODIPine 10 mg tablet 2022-0 6-12 00:00: 00 Yes [id number] 10mg Take 1 tablet by mouth in the morning. [facility] amLODIPine 10 mg tablet 2022-0 6-12 00:00: 00 Yes [id number] 10mg Take 1 tablet by mouth in the morning. [facility] amLODIPine 10 mg tablet 2022-0 6-12 00:00: 00 Yes [id number] 10mg Take 1 tablet by mouth in the morning. [facility] amLODIPine 10 mg tablet 2022-0 6-12 00:00: 00 Yes [id number] 10mg Take 1 tablet by mouth in the morning. [facility] amLODIPine 10 mg tablet 2022-0 12-23 00:00: 00 Yes [id number] 10mg Take 1 tablet by mouth in the morning. [facility] amLODIPine 10 mg tablet 2022-0 12-23 00:00: 00 Yes [id number] 10mg Take 1 tablet by mouth in the morning. [facility] amLODIPine 10 mg tablet 0 12-23 00:00: 00 Yes [id number] 10mg Take 1 tablet by mouth in the morning. [facility] amLODIPine 10 mg tablet 0 12-23 00:00: 00 Yes [id number] 10mg Take 1 tablet by mouth in the morning. [facility] lisinopriL 20 mg tablet 0 12-20 00:00: 00 Yes [id number] 20mg Take 1 tablet by mouth in the morning. [facility] lisinopriL 20 mg tablet 2022-0 12-20 00:00: 00 Yes [id number] 20mg Take 1 tablet by mouth in the morning. [facility] lisinopriL 20 mg tablet 2022-0 12-20 00:00: 00 Yes [id number] 20mg Take 1 tablet by mouth in the morning. [facility] lisinopriL 20 mg tablet 2022-0 12-20 00:00: 00 Yes [id number] 20mg Take 1 tablet by mouth in the morning. [facility] lisinopriL 20 mg tablet 2022-0 12-20 00:00: 00 Yes [id number] 20mg Take 1 tablet by mouth in the morning. [facility] lisinopriL 20 mg tablet 2022-0 12-20 00:00: 00 Yes [id number] 20mg Take 1 tablet by mouth in the morning. [facility] lisinopriL 20 mg tablet 2022-0 12-20 00:00: 00 Yes [id number] 20mg Take 1 tablet by mouth in the morning. [facility] lisinopriL 20 mg tablet 2022-0 12-20 00:00: 00 Yes [id number] 20mg Take 1 tablet by mouth in the morning. [facility] lisinopriL 20 mg tablet 2022-0 12-20 00:00: 00 Yes [id number] 20mg Take 1 tablet by mouth in the morning. [facility] lisinopriL 20 mg tablet 2022-0 12-20 00:00: 00 Yes [id number] 20mg Take 1 tablet by mouth in the morning. [facility] lisinopriL 20 mg tablet 2022-0 12-20 00:00: 00 Yes [id number] 20mg Take 1 tablet by mouth in the morning. [facility] lisinopriL 20 mg tablet 2022-0 12-20 00:00: 00 Yes [id number] 20mg Take 1 tablet by mouth in the morning. [facility] lisinopriL 20 mg tablet 2022-0 12-20 00:00: 00 Yes [id number] 20mg Take 1 tablet by mouth in the morning. [facility] lisinopriL 20 mg tablet 2022-0 12-20 00:00: 00 Yes [id number] 20mg Take 1 tablet by mouth in the morning. [facility] metoprolol succinate XL 50 mg 24 hr tablet 2022-0 12-03 00:00: 00 Yes [id number] 50mg Take 1 tablet by mouth in the morning. [facility] metoprolol succinate XL 50 mg 24 hr tablet 2022-0 12-03 00:00: 00 Yes [id number] 50mg Take 1 tablet by mouth in the morning. [facility] metoprolol succinate XL 50 mg 24 hr tablet 2022-0 12-03 00:00: 00 Yes [id number] 50mg Take 1 tablet by mouth in the morning. [facility] metoprolol succinate XL 50 mg 24 hr tablet 2022-0 23 00:00: 00 Yes [id number] 50mg Take 1 tablet by mouth in the morning. [facility] metoprolol succinate XL 50 mg 24 hr tablet 3-0 -23 00:00: 00 Yes [id number] 50mg Take 1 tablet by mouth in the morning. [facility] metoprolol succinate XL 50 mg 24 hr tablet 3-0 -23 00:00: 00 Yes [id number] 50mg Take 1 tablet by mouth in the morning. [facility] metoprolol succinate XL 50 mg 24 hr tablet 0 12-03 00:00: 00 Yes [id number] 50mg Take 1 tablet by mouth in the morning. [facility] metoprolol succinate XL 50 mg 24 hr tablet 0 12-03 00:00: 00 Yes [id number] 50mg Take 1 tablet by mouth in the morning. [facility] metoprolol succinate XL 50 mg 24 hr tablet 0 12-03 00:00: 00 Yes [id number] 50mg Take 1 tablet by mouth in the morning. [facility] metoprolol succinate XL 50 mg 24 hr tablet 0 12-03 00:00: 00 Yes [id number] 50mg Take 1 tablet by mouth in the morning. [facility] metoprolol succinate XL 50 mg 24 hr tablet 12-03 00:00: 00 Yes [id number] 50mg Take 1 tablet by mouth in the morning. [facility] metoprolol succinate XL 50 mg 24 hr tablet 0 12-03 00:00: 00 05-30 00:00 :00 No [id number] 50mg Take 1 tablet by mouth in the morning. [facility] rosuvastati n 5 mg tablet 12 00:00: 00 Yes [id number] 5mg Take 1 tablet by mouth in the morning. [facility] amLODIPine 10 mg tablet 0 12 00:00: 00 Yes [id number] 10mg Take 1 tablet by mouth in the morning. [facility] lisinopriL 20 mg tablet 0 -12 00:00: 00 Yes [id number] 20mg Take 1 tablet by mouth in the morning. [facility] metoprolol succinate XL 50 mg 24 hr tablet 0 -12 00:00: 00 Yes [id number] 50mg Take 1 tablet by mouth in the morning. [facility] rosuvastati n 5 mg tablet 0 4-12 00:00: 00 Yes [id number] 5mg Take 1 tablet by mouth in the morning. [facility] amLODIPine 10 mg tablet 0 4-12 00:00: 00 Yes [id number] 10mg Take 1 tablet by mouth in the morning. [facility] lisinopriL 20 mg tablet 2022-0 4-12 00:00: 00 Yes [id number] 20mg Take 1 tablet by mouth in the morning. [facility] metoprolol succinate XL 50 mg 24 hr tablet 2022-0 -12 00:00: 00 Yes [id number] 50mg Take 1 tablet by mouth in the morning. [facility] rosuvastati n 5 mg tablet 2022-0 -12 00:00: 00 Yes [id number] 5mg Take 1 tablet by mouth in the morning. [facility] amLODIPine 10 mg tablet 2022-0 -12 00:00: 00 Yes [id number] 10mg Take 1 tablet by mouth in the morning. [facility] lisinopriL 20 mg tablet 2022-0 12 00:00: 00 Yes [id number] 20mg Take 1 tablet by mouth in the morning. [facility] rosuvastati n 5 mg tablet 2022-0 12 00:00: 00 Yes [id number] 5mg Take 1 tablet by mouth in the morning. [facility] amLODIPine 10 mg tablet 2022-0 12 00:00: 00 Yes [id number] 10mg Take 1 tablet by mouth in the morning. [facility] rosuvastati n 5 mg tablet 2022-0 12 00:00: 00 Yes [id number] 5mg Take 1 tablet by mouth in the morning. [facility] amLODIPine 10 mg tablet 2022-0 -12 00:00: 00 Yes [id number] 10mg Take 1 tablet by mouth in the morning. [facility] rosuvastati n 5 mg tablet 3-0 4-12 00:00: 00 Yes [id number] 5mg Take 1 tablet by mouth in the morning. [facility] rosuvastati n 5 mg tablet 3-0 4-12 00:00: 00 Yes [id number] 5mg Take 1 tablet by mouth in the morning. [facility] rosuvastati n 5 mg tablet 2022-0 4-12 00:00: 00 Yes [id number] 5mg Take 1 tablet by mouth in the morning. [facility] rosuvastati n 5 mg tablet 2022-0 4-12 00:00: 00 Yes [id number] 5mg Take 1 tablet by mouth in the morning. [facility] rosuvastati n 5 mg tablet 2022-0 4-12 00:00: 00 04-22 00:00 :00 No [id number] 5mg Take 1 tablet by mouth in the morning. [facility] rosuvastati n 5 mg tablet 2022-0 4-12 00:00: 00 04-22 00:00 :00 No [id number] 5mg Take 1 tablet by mouth in the morning. [facility] rosuvastati n 5 mg tablet 2022-0 4-12 00:00: 00 04-22 00:00 :00 No [id number] 5mg Take 1 tablet by mouth in the morning. [facility] amLODIPine 10 mg tablet 2022-0 4-12 00:00: 00 12-23 00:00 :00 No [id number] 10mg Take 1 tablet by mouth in the morning. [facility] amLODIPine 10 mg tablet 2022-0 4-12 00:00: 00 12-23 00:00 :00 No [id number] 10mg Take 1 tablet by mouth in the morning. [facility] amLODIPine 10 mg tablet 2022-0 4-12 00:00: 00 12-23 00:00 :00 No [id number] 10mg Take 1 tablet by mouth in the morning. [facility] lisinopriL 20 mg tablet 2022-0 4-12 00:00: 00 12-20 00:00 :00 No [id number] 20mg Take 1 tablet by mouth in the morning. [facility] lisinopriL 20 mg tablet 2022-0 4-12 00:00: 00 12-20 00:00 :00 No [id number] 20mg Take 1 tablet by mouth in the morning. [facility] lisinopriL 20 mg tablet 2022-0 4-12 00:00: 00 12-20 00:00 :00 No [id number] 20mg Take 1 tablet by mouth in the morning. [facility] lisinopriL 20 mg tablet 2022-0 4-12 00:00: 00 12-20 00:00 :00 No [id number] 20mg Take 1 tablet by mouth in the morning. [facility] metoprolol succinate XL 50 mg 24 hr tablet 2022-0 4-12 00:00: 00 12-03 00:00 :00 No [id number] 50mg Take 1 tablet by mouth in the morning. [facility] metoprolol succinate XL 50 mg 24 hr tablet 2022-0 4-12 00:00: 00 12-03 00:00 :00 No [id number] 50mg Take 1 tablet by mouth in the morning. [facility] metoprolol succinate XL 50 mg 24 hr tablet 2022-0 4-12 00:00: 00 12-03 00:00 :00 No [id number] 50mg Take 1 tablet by mouth in the morning. [facility] evolocumab (REPATHA SYRINGE) 140 mg/mL Syrg 2022-0 5-20 00:00: 00 Yes [id number] 140mg inject 140 mg under the skin every 2 (two) weeks. [facility] evolocumab (REPATHA SYRINGE) 140 mg/mL Syrg 2022-0 5-20 00:00: 00 Yes [id number] 140mg inject 140 mg under the skin every 2 (two) weeks. [facility] evolocumab (REPATHA SYRINGE) 140 mg/mL Syrg 2022-0 5-20 00:00: 00 Yes [id number] 140mg inject 140 mg under the skin every 2 (two) weeks. [facility] evolocumab (REPATHA SYRINGE) 140 mg/mL Syrg 2022-0 5-20 00:00: 00 Yes [id number] 140mg inject 140 mg under the skin every 2 (two) weeks. [facility] evolocumab (REPATHA SYRINGE) 140 mg/mL Syrg 2022-0 5-20 00:00: 00 10-23 00:00 :00 No [id number] 140mg inject 140 mg under the skin every 2 (two) weeks. [facility] evolocumab (REPATHA SYRINGE) 140 mg/mL Syrg 0 5-20 00:00: 00 10-23 00:00 :00 No [id number] 140mg inject 140 mg under the skin every 2 (two) weeks. [facility] evolocumab (REPATHA SYRINGE) 140 mg/mL Syrg 0 5-20 00:00: 00 10-23 00:00 :00 No [id number] 140mg inject 140 mg under the skin every 2 (two) weeks. [facility] evolocumab (REPATHA SYRINGE) 140 mg/mL Syrg 0 5-20 00:00: 00 10-23 00:00 :00 No [id number] 140mg inject 140 mg under the skin every 2 (two) weeks. [facility] amLODIPine 10 mg tablet 10-23 00:00: 00 Yes [id number] 10mg Take 1 tablet by mouth daily. [facility] metoprolol succinate XL 50 mg 24 hr tablet 10-23 00:00: 00 Yes [id number] 50mg Take 1 tablet by mouth daily. [facility] lisinopriL 20 mg tablet 0 10-23 00:00: 00 Yes [id number] 20mg Take 1 tablet by mouth daily. [facility] amLODIPine 10 mg tablet 0 12 00:00: 00 Yes [id number] 10mg Take 1 tablet by mouth daily. [facility] metoprolol succinate XL 50 mg 24 hr tablet 0 -12 00:00: 00 Yes [id number] 50mg Take 1 tablet by mouth daily. [facility] lisinopriL 20 mg tablet 2021-0 12 00:00: 00 Yes [id number] 20mg Take 1 tablet by mouth daily. [facility] amLODIPine 10 mg tablet 2021-0 -12 00:00: 00 Yes [id number] 10mg Take 1 tablet by mouth daily. [facility] metoprolol succinate XL 50 mg 24 hr tablet 0 4-12 00:00: 00 Yes [id number] 50mg Take 1 tablet by mouth daily. [facility] lisinopriL 20 mg tablet 0 4-12 00:00: 00 Yes [id number] 20mg Take 1 tablet by mouth daily. [facility] amLODIPine 10 mg tablet -12 00:00: 00 Yes [id number] 10mg Take 1 tablet by mouth daily. [facility] metoprolol succinate XL 50 mg 24 hr tablet 0 12 00:00: 00 Yes [id number] 50mg Take 1 tablet by mouth daily. [facility] lisinopriL 20 mg tablet 12 00:00: 00 Yes [id number] 20mg Take 1 tablet by mouth daily. [facility] amLODIPine 10 mg tablet 12 00:00: 00 10-23 00:00 :00 No [id number] 10mg Take 1 tablet by mouth daily. [facility] metoprolol succinate XL 50 mg 24 hr tablet 12 00:00: 00 10-23 00:00 :00 No [id number] 50mg Take 1 tablet by mouth daily. [facility] lisinopriL 20 mg tablet 12 00:00: 00 10-23 00:00 :00 No [id number] 20mg Take 1 tablet by mouth daily. [facility] amLODIPine 10 mg tablet 12 00:00: 00 10-23 00:00 :00 No [id number] 10mg Take 1 tablet by mouth daily. [facility] metoprolol succinate XL 50 mg 24 hr tablet 12 00:00: 00 10-23 00:00 :00 No [id number] 50mg Take 1 tablet by mouth daily. [facility] lisinopriL 20 mg tablet 0 -12 00:00: 00 10-23 00:00 :00 No [id number] 20mg Take 1 tablet by mouth daily. [facility] amLODIPine 10 mg tablet 0 4-12 00:00: 00 10-23 00:00 :00 No [id number] 10mg Take 1 tablet by mouth daily. [facility] metoprolol succinate XL 50 mg 24 hr tablet -12 00:00: 00 10-23 00:00 :00 No [id number] 50mg Take 1 tablet by mouth daily. [facility] lisinopriL 20 mg tablet 12 00:00: 00 10-23 00:00 :00 No [id number] 20mg Take 1 tablet by mouth daily. [facility] amLODIPine 10 mg tablet 10-23 00:00: 00 10-23 00:00 :00 No [id number] 10mg Take 1 tablet by mouth daily. [facility] metoprolol succinate XL 50 mg 24 hr tablet 10-23 00:00: 00 10-23 00:00 :00 No [id number] 50mg Take 1 tablet by mouth daily. [facility] lisinopriL 20 mg tablet 10-23 00:00: 00 10-23 00:00 :00 No [id number] 20mg Take 1 tablet by mouth daily. [facility] aspirin 81 mg EC tablet 2019-07 00:00: 00 Yes [id number] 4100 81mg Take 1 tablet by mouth daily. [facility] aspirin 81 mg EC tablet 2019-07 00:00: 00 Yes [id number] 4100 81mg Take 1 tablet by mouth daily. [facility] aspirin 81 mg EC tablet 2019-07 00:00: 00 Yes [id number] 4100 81mg Take 1 tablet by mouth daily. [facility] aspirin 81 mg EC tablet 2019-07 00:00: 00 Yes [id number] 4100 81mg Take 1 tablet by mouth daily. [facility] aspirin 81 mg EC tablet 2019-07 00:00: 00 Yes [id number] 4100 81mg Take 1 tablet by mouth daily. [facility] aspirin 81 mg EC tablet 2019-07 00:00: 00 Yes [id number] 4100 81mg Take 1 tablet by mouth daily. [facility] aspirin 81 mg EC tablet 2019-07 00:00: 00 Yes [id number] 4100 81mg Take 1 tablet by mouth daily. [facility] aspirin 81 mg EC tablet 2019-07 00:00: 00 Yes [id number] 4100 81mg Take 1 tablet by mouth daily. [facility] aspirin 81 mg EC tablet 2019-07 00:00: 00 Yes [id number] 4100 81mg Take 1 tablet by mouth daily. [facility] aspirin 81 mg EC tablet 2019-07 00:00: 00 Yes [id number] 4100 81mg Take 1 tablet by mouth daily. [facility] aspirin 81 mg EC tablet 2019-07 00:00: 00 Yes [id number] 4100 81mg Take 1 tablet by mouth daily. [facility] aspirin 81 mg EC tablet 2019-07 00:00: 00 Yes [id number] 4100 81mg Take 1 tablet by mouth daily. [facility] aspirin 81 mg EC tablet 2019-07 00:00: 00 Yes [id number] 4100 81mg Take 1 tablet by mouth daily. [facility] aspirin 81 mg EC tablet 2019-07 00:00: 00 Yes [id number] 4100 81mg Take 1 tablet by mouth daily. [facility] aspirin 81 mg EC tablet 2019-07 00:00: 00 Yes [id number] 4100 81mg Take 1 tablet by mouth daily. [facility] aspirin 81 mg EC tablet 2019-07 00:00: 00 Yes [id number] 4100 81mg Take 1 tablet by mouth daily. [facility] aspirin 81 mg EC tablet 2019-07 00:00: 00 Yes [id number] 4100 81mg Take 1 tablet by mouth daily. [facility] aspirin 81 mg EC tablet 2019-07 00:00: 00 Yes [id number] 4100 81mg Take 1 tablet by mouth daily. [facility] aspirin 81 mg EC tablet 2019-07 00:00: 00 Yes [id number] 4100 81mg Take 1 tablet by mouth daily. [facility] aspirin 81 mg EC tablet 2019-07 00:00: 00 Yes [id number] 4100 81mg Take 1 tablet by mouth daily. [facility] aspirin 81 mg EC tablet 2019-07 00:00: 00 Yes [id number] 4100 81mg Take 1 tablet by mouth daily. [facility] aspirin 81 mg EC tablet 2019-07 00:00: 00 Yes [id number] 4100 81mg Take 1 tablet by mouth daily. [facility] aspirin 81 mg EC tablet 2019-07 00:00: 00 Yes [id number] 4100 81mg Take 1 tablet by mouth daily. [facility] Vital Signs Vital Name Observation Time Observation Value Comments S our Systolic blood pressure 2022-10-23 21:04:00 125 mm[Hg] [facility] Diastolic blood pressure 2022-10-23 21:04:00 67 mm[Hg] [facility] Heart rate 2022-10-23 21:04:00 51 /min [facility] Respiratory rate 2022-10-23 21:04:00 19 /min [facility] Body height 2022-10-23 21:04:00 172.7 cm [facility] Body weight 2022-10-23 21:04:00 58.514 kg [facility] BMI 2022-10-23 21:04:00 19.61 kg/m2 [facility] Oxygen saturation in Arterial blood by Pulse oximetry 2022-10-23 21:04:00 100 /min [facility] Procedures Procedure Date / Time Performed Performing Clinician Source EXTERNAL PROVIDER - [facility] 2023-06-02 06:01:00 Doctor Unassigned, [place] [facility] EXTERNAL PROVIDER - [facility] 2023-05-23 06:01:00 Doctor Unassigned, [place] [facility] EXTERNAL PROVIDER - [facility] 2023-01-03 05:01:00 Doctor Unassigned, [place] [facility] HB ECG ROUTINE & RHYTHM STRIP 2022-10-23 21:07:03 Jack Fontenot [facility] ASSIGNMENT OF BENEFITS 2022-10-23 20:46:28 Docto r Unassigned, [place] [facility] MEDICATION CORRESPONDENCE 2021-12-17 05:01:00 Do ctor Unassigned, [place] [facility] Encounters Start Date/Time End Date/Time Encounter Type Admission Type Attending [facility] Facility Care Department Encounter ID Source 2023-10-30 15:20:00 2023-10-30 15:20:00 [id number] 2023-08-28 00:00:00 2023-08-28 00:00:00 [facility] 1..840.114 350.1.13.10 4.2.7.2.686 [id number] [id number] [facility] 2023-06-02 00:00:00 2023-06-02 00:00:00 Orders Only Doctor Unassigned, [place] [address].840.114 350.1.13.10 4.2.7.2.686 [id number] [id number] [facility] 2023-05-30 00:00:00 2023-05-30 00:00:00 [facility] 1.2.840.114 350.1.13.10 4.2.7.2.686 [id number] [id number] [facility] 2023-05-23 00:00:00 2023-05-23 00:00:00 Orders Only Doctor Unassigned, [place] [id number] 350.1.13.10 4.2.7.2.686 [id number] [id number] [facility] 2023-05-22 00:00:00 2023-05-22 00:00:00 Refill Jack Fontenot [facility] 1.2.840.114 350.1.13.10 4.2.7.2.686 [id number] [id number] [facility] 2023-05-22 00:00:00 2023-05-22 00:00:00 Telephone Jack Fontenot [facility] 1.2.840.114 350.1.13.10 4.2.7.2.686 [id number] [id number] [facility] 2023-05-20 00:00:00 2023-05-20 00:00:00 [facility] 1.2.840.114 350.1.13.10 4.2.7.2.686 [id number] [facility] 2023-04-21 00:00:00 2023-04-21 00:00:00 [facility] 1.2.840.114 350.1.13.10 4.2.7.2.686 [id number] [facility] 2023-01-03 00:00:00 2023-01-03 00:00:00 Orders Only Doctor Unassigned, [place] [facility] 1.2.840.114 350.1.13.10 4.2.7.2.686 [id number] [id number] [facility] 2022-12-27 00:00:00 2022-12-27 00:00:00 [facility] 1.2.840.114 350.1.13.10 4.2.7.2.686 [id number] 059 [id number] [facility] 2022-12-23 00:00:00 2022-12-23 00:00:00 [facility] 1.2.840.114 350.1.13.10 4.2.7.2.686 [id number] [id number] [facility] 2022-12-20 00:00:00 2022-12-20 00:00:00 [facility] 1.2840.114 350.1.13.10 4.2.7.2.686 [id number] [facility] 2022-12-03 00:00:00 2022-12-03 00:00:00 [facility] 1.2.840.114 350.1.13.10 4.2.7.2.686 [id number] [facility] 2022-10-23 15:40:00 2022-10-23 16:27:30 [facility] [id number] [facility] 2022-10-23 15:40:00 2022-10-23 16:27:30 [facility] 1.2.840.114 350.1.13.10 4.2.7.2.686 [id number] [facility] 2022-10-23 15:40:00 2022-10-23 15:40:00 [facility] [id number] [facility] 2022-10-23 00:00:00 2022-10-23 00:00:00 Orders Only Doctor Unassigned, [place] [facility] 1.2840.114 350.1.13.10 4.2.7.2.686 [id number] [id number] [facility] 2022-03-29 00:00:00 2022-03-29 00:00:00 [facility] 1.2.840.114 350.1.13.10 4.2.7.2.686 [id number] [facility] 2021-12-17 00:00:00 2021-12-17 00:00:00 Orders Only Doctor Unassigned, [place] [facility] 1.2.840.114 350.1.13.10 4.2.7.2.686 [id number] [facility] 2021-12-03 00:00:00 2021-12-03 00:00:00 [facility] 1.2.840.114 350.1.13.10 4.2.7.2.686 [id number] [id number] [facility] 2021-11-30 00:00:00 2021-11-30 00:00:00 Telephone Corie [facility] 1.2.840.114 350.1.13.10 4.2.7.2.686 [id number] 059 [id number] [facility] 2021-11-26 00:00:00 2021-11-26 00:00:00 [facility] 1.2.840.114 350.1.13.10 4.2.7.2.686 [id number] 059 [id number] [facility] 2021-11-22 00:00:00 2021-11-22 00:00:00 [facility] 1.2.840.114 350.1.13.10 4.2.7.2.686 [id number] [id number] [facility] 2021-11-16 08:00:00 2021-11-16 23:59:00 [facility] [id number] 2021-11-16 09:15:00 2021-11-16 09:30:00 Desizing Machine Offbearer Visit 2, Adc Lab Lisa Tucker [facility] BUILDING 1.2.840.114 350.1.13.10 4.2.7.2.686 [id number] [facility] 2021-11-16 08:00:00 2021-11-16 08:00:00 [facility] [id number] [facility] 2021-10-23 15:40:00 2021-10-23 16:22:03 [facility] [id number] [facility] 2021-10-23 15:40:00 2021-10-23 16:22:03 Office Visit Corie [facility] BUILDING 1.2.840.114 350.1.13.10 4.2.7.2.686 [id number] [id number] [facility] 2021-10-23 00:00:00 2021-10-23 00:00:00 Orders Only Doctor Unassigned, [place] [facility] 1.2.840.114 350.1.13.10 4.2.7.2.686 [id number] [id number] [facility] 2021-09-26 09:00:00 2021-09-26 09:00:00 [facility] [id number] [facility] 2021-08-28 00:00:00 2021-08-28 00:00:00 Refill Corie [facility] BUILDING 1.2.840.114 350.1.13.10 4.2.7.2.686 [id number] 059 [id number] [facility] 2021-03-28 08:50:33 2021-03-28 09:19:52 Office [facility] 1.2.840.114 350.1.13.10 4.2.7.2.686 [id number] [id number] [facility] 2021-03-28 09:00:00 2021-03-28 09:00:00 Outpatient R JACK FONTENOT [facility] [id number] [facility] 2021-03-01 00:00:00 2021-03-01 00:00:00 [facility] 1.2.840.114 350.1.13.10 4.2.7.2.686 [id number] [facility] 2020-12-28 00:00:00 2020-12-28 00:00:00 [facility] 1.2.840.114 350.1.13.10 4.2.7.2.686 [id number] 059 [id number] [facility] 2020-10-06 00:00:00 2020-10-06 00:00:00 Telephone Jack Fontenot [facility] Building 1.2.840.114 350.1.13.10 4.2.7.2.686 [id number] 059 [id number] [facility] 2020-09-19 08:55:57 2020-09-19 09:10:57 Desizing Machine Offbearer Visit 2, [facility] 1.2.840.114 350.1.13.10 4.2.7.2.686 [id number] [facility] 2020-09-19 08:04:16 2020-09-19 08:45:00 Office Visit Jack [facility] 1.2.840.114 350.1.13.10 4.2.7.2.686 [id number] 059 [id number] [facility] 2020-09-19 08:00:00 2020-09-19 08:00:00 Outpatient R JACK FONTENOT [facility] [id number] [facility] 2020-08-23 00:00:00 2020-08-23 00:00:00 [facility] 1.2.840.114 350.1.13.10 4.2.7.2.686 [id number] 059 [id number] [facility] 2020-07-12 15:55:25 2020-07-12 16:55:25 Desizing Machine Offbearer Visit , [facility] Room 1 [facility] 1.2.840.114 350.1.13.10 4.2.7.2.686 [id number] 059 [id number] [facility] 2020-07-12 16:00:00 2020-07-12 16:00:00 Outpatient R [facility] [id number] [facility] 2020-06-23 10:57:20 2020-06-23 11:35:55 Desizing Machine Offbearer Visit , [facility] V[facility] Room 1 - Dexter Holman [facility] Building 1.2.840.114 350.1.13.10 4.2.7.2.686 [id number] [facility] 2020-06-23 11:00:00 2020-06-23 11:00:00 Outpatient R [facility] [id number] [facility] 2020-06-21 13:52:58 2020-06-21 14:31:55 Office Visit Corie [facility] Building 1.2.840.114 350.1.13.10 4.2.7.2.686 [id number] [facility] 2020-06-21 14:00:00 2020-06-21 14:00:00 [facility] [id number] [facility] 2020-06-19 12:51:22 2020-06-19 13:55:20 Laboratory Only Pc, Adc Echo Room 1 - [facility] Building 1.2.840.114 350.1.13.10 4.2.7.2.686 [id number] 059 [id number] [facility] 2020-06-19 07:53:07 2020-06-19 08:53:07 Desizing Machine Offbearer Visit Pc, Adc Vascular Room 1 - [facility] Building 1.2.840.114 350.1.13.10 4.2.7.2.686 [id number] 059 [id number] [facility] 2020-06-19 08:00:00 2020-06-19 08:00:00 Outpatient R [facility] [id number] [facility] 2020-06-07 13:55:35 2020-06-07 15:03:20 [facility] 1.2.840.114 350.1.13.10 4.2.7.2.686 [id number] [facility] 2020-06-07 14:00:00 2020-06-07 14:00:00 [facility] [id number] [facility] 2020-06-07 00:00:00 2020-06-07 00:00:00 Orders Only Doctor Unassigned, [place] [facility] 1.840.114 350.1.13.10 4.2.7.2.686 [id number] [id number] [facility] Notes Date/Time Note Provider Source 2023-08-28 15:01:57 [id number] 1KbrpmEym [id number] Xq+rGa3238-25-08P64:01:57Form atting of this note is different from the original.Images from the original note were not included.Refill approved per cardiology protocol:Cardiovascular: Beta Blockers Svsqii6108/28/2023 02:57 PMProtocol Details Valid encounter within last 12 monthsHeart rate within normal limits and completed in the last 12 months [id number] encounter [id number]:01:57Tele phone encounter [id number] [id number] ailable for patient [id number] matted C-CDA narrative [id number] D Garcia MA[address] ZaurHkmyildruKziehdcebDUAC488 [id number]:01:571.2.840.11 [id number]|[id number] .[id number] Sydney Chen MA [facility]"
[2023-10-09 18:22] LABS: Absolute Basophils 0.1 K/uL (0-0.5); Absolute Eosinophils 0.3 K/uL (0-0.5); Absolute Lymphocytes (CBC) 1.8 K/uL (0.7-4.9); Absolute Monocytes 0.5 K/uL (0.1-1.3); Absolute Neutrophil 6.2 K/uL (1.8-8.0); Basophils % 0.8 % (0-1.3); Eosinophils % 3.1 % (0-4.4); Hematocrit 40.3 % (36.0-45.0); Hemoglobin 13.8 g/dL (12.0-15.0); Lymphocytes % 20.3 % (15.3-44.8); MCH 31.8 pg (27.0-35.0); MCHC 34.2 g/dL (32.0-36.0); MCV 93.1 fL (80-100); MPV 8.2 fL (7.6-11.3); Monocytes % 5.8 % (3.3-12.3); Platelets 156 thou/uL (152-406); RBC Red Blood Cell Count 4.33 M/uL (3.86-4.86); Red Cell Distribution Width 13.2 % (12.1-15.2)
[2023-10-09 18:25] LABS: PT Prothrombin Time 10.9 SECONDS (9.5-12.5); Protime INR 0.99
[2023-10-09 18:27] LABS: Specific Gravity 1.008 (1.005-1.030); Sqamous Epithelial <5 /HPF (None Seen); Urine Bacteria <20 /HPF (<20); Urine Bilirubin NEGATIVE (Negative); Urine Blood Negative (Negative); Urine Clarity Turbid (Clear); Urine Color Colorless (Yellow); Urine Culture Reflex Order NOT NEEDED; Urine Glucose NEGATIVE (Negative); Urine Ketones NEGATIVE (Negative); Urine Microscopic Reflex YN ORDER UMIC; Urine Mucus 1+ /HPF (None Seen); Urine Nitrite NEGATIVE (Negative); Urine Protein NEGATIVE (Negative); Urine RBC <5 /HPF (None Seen); Urine Urobilinogen Normal (Normal); Urine WBC <5 /HPF (<5)
[2023-10-09 18:31] LABS: SARS-CoV-2 Antigen CONTROL BLUE LINE VIS/BG OK; SARS-CoV-2 Antigen Rapid Res Negative (Negative)
[2023-10-09 18:45] LABS: Albumin 3.8 g/dL (3.4-5.0); Albumin/Globulin Ratio 1.1 (1.1-1.8); Anion Gap 8.8 mEq/L (5.0-15.0); Bilirubin Direct 0.1 mg/dL (0-0.2); Bilirubin Indirect, Calculated 0.2 mg/dL (0.2-0.8); Bilirubin Total 0.3 mg/dL (0.2-1.0); Globulin 3.6 g/dL (2.3-3.5); Magnesium 1.9 mg/dL (1.6-2.4); Potassium 3.8 mEq/L (3.5-5.1); Protein, Total 7.4 g/dL (6.4-8.2); Troponin High Sensitivity 3.9 pg/mL (<58.9)
--- NOTE | 2023-10-09 18:52 | RAD REPORT ---
EXAM DESCRIPTION: Richardt Single View10/09/2023 5:51 pm CLINICAL HISTORY: CHEST PAIN COMPARISON: Chest Single View dated 09/16/2019; Chest Single View dated 08/25/2017; Chest Single View d ated 12/29/2015; Chest Single View dated 12/28/2015 TECHNIQUE: Portable AP view of the chest. FINDINGS: The lungs are clear. No pneumothorax or effusion. The cardiomediastinal contours are unre markable. IMPRESSION: No acute cardiopulmonary process.
[2023-10-09] MEDS ORDERED: ASPIRIN 81 MG CHEWABLE TABLET ONE (19:10)
[2023-10-09] MEDS ORDERED: FAMOTIDINE 20 MG/2 ML VIAL IV ONE (19:11)
[2023-10-09] MEDS ORDERED: MORPHINE 2 MG/ML SYR ONE (19:11)
[2023-10-09] MEDS ORDERED: ENOXAPARIN 60 MG/0.6 ML SQ ONE (19:11)
--- NOTE | 2023-10-09 19:11 | EDPHYS ---
Physician Documentation [facility] Name: Miguel A Shook Age: 53 yrs Sex: Female : 1970 Arrival Date: 10/09/2023 Time: 17:17 Bed 6 Private MD: ED Physician Arsalan Holder HPI: 10/08 19:02 This 53 yrs old Female presents to ER via Ambulatory with complaints of Chest salome Pain, Shortness Of Breath. 19:02 The patient or guardian reports chest pain that is located primarily in the substernal salome area, anterior chest wall. Onset: just prior to arrival. The pain radiates to Associated signs and symptoms: Pertinent positives: shortness of breath. The chest pain is described as a pressure, squeezing. Duration: The patient or guardian reports multiple episodes, with no pattern. Modifying factors: The symptoms are alleviated by nothing. the symptoms are aggravated by deep breath. The patient has not experienced similar symptoms in the past. 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 - Social history:: Smoking status: Patient reports the use of cigarette tobacco products, smokes one pack cigarettes per day. - Family history:: not pertinent. ROS: 19:02 Constitutional: Negative for fever, chills, and weight loss, Eyes: Negative for injury, salome pain, redness, and discharge, ENT: Negative for injury, pain, and discharge, Neck: Negative for injury, pain, and swelling, Abdomen/GI: Negative for abdominal pain, nausea, vomiting, diarrhea, and constipation, Back: Negative for injury and pain, : Negative for injury, bleeding, discharge, and swelling, MS/Extremity: Negative for injury and deformity, Skin: Negative for injury, rash, and discoloration, Neuro: Negative for headache, weakness, numbness, tingling, and seizure, Psych: Negative for depression, anxiety, suicide ideation, homicidal ideation, and hallucinations, Allergy/Immunology: Negative for hives, rash, and allergies, Endocrine: Negative for neck swelling, polydipsia, polyuria, polyphagia, and marked weight changes, Hematologic/Lymphatic: Negative for swollen nodes, abnormal bleeding, and unusual bruising, 19:02 Cardiovascular: Positive for chest pain, 19:02 Respiratory: Positive for pleurisy, shortness of breath, Exam: 19:02 Constitutional: This is a well developed, well nourished patient who is awake, alert, salome and in no acute distress. Head/Face: Normocephalic, atraumatic. Eyes: Pupils equal round and reactive to light, extra-ocular motions intact. Lids and lashes normal. Conjunctiva and sclera are non-icteric and not injected. Cornea within normal limits. Periorbital areas with no swelling, redness, or edema. ENT: Nares patent. No nasal discharge, no septal abnormalities noted. Tympanic membranes are normal and external auditory canals are clear. Oropharynx with no redness, swelling, or masses, exudates, or evidence of obstruction, uvula midline. Mucous membranes moist. Neck: Trachea midline, no thyromegaly or masses palpated, and no cervical lymphadenopathy. Supple, full range of motion without nuchal rigidity, or vertebral point tenderness. No Meningismus. Chest/axilla: Normal chest wall appearance and motion. Nontender with no deformity. No lesions are appreciated. Cardiovascular: Regular rate and rhythm with a normal S1 and S2. No gallops, murmurs, or rubs. Normal PMI, no JVD. No pulse deficits. Respiratory: Lungs have equal breath sounds bilaterally, clear to auscultation and percussion. No rales, rhonchi or wheezes noted. No increased work of breathing, no retractions or nasal flaring. Abdomen/GI: Soft, non-tender, with normal bowel sounds. No distension or tympany. No guarding or rebound. No evidence of tenderness throughout. Back: No spinal tenderness. No costovertebral tenderness. Full range of motion. Female : Normal external genitalia. Skin: Warm, dry with normal turgor. Normal color with no rashes, no lesions, and no evidence of cellulitis. MS/ Extremity: Pulses equal, no cyanosis. Neurovascular intact. Full, normal range of motion. Neuro: Awake and alert, GCS 15, oriented to person, place, time, and situation. Cranial nerves II-XII grossly intact. Motor strength 5/5 in all extremities. Sensory grossly intact. Cerebellar exam normal. Normal gait. Psych: Awake, alert, with orientation to person, place and time. Behavior, mood, and affect are within normal limits. 19:02 ECG was reviewed by the Attending Physician. Vital Signs: 17:26 BP 173 / 95; Pulse 70; Resp 16; Temp 97.8; Pulse Ox 100% ; ko1 19:08 Weight 58.97 kg; Height 5 ft. 8 in. ; aa5 19:10 BP 155 / 85; Pulse 72; Resp 18; Pulse Ox 98% ; ph 19:08 Body Mass Index 19.77 (58.97 kg, 172.72 cm) aa5 Underwood Coma Score: 19:14 Eye Response: spontaneous(4). Motor Response: obeys commands(6). Verbal Response: rv oriented(5). Total: 15. MDM: 17:22 Patient medically screened. salome 19:04 Differential diagnosis: abnormal EKG, acute myocardial infarction, acute pericarditis, salome anxiety, coronary artery disease chest wall pain, gastritis, hiatal hernia, mitral valve prolapse, pancreatitis, peptic ulcer disease, pericarditis, pleurisy, pneumonia, pneumothorax, pulmonary embolus, stable angina, thoracic aortic disection, unstable angina. HEART Score: History: Moderately Suspicious (1), ECG: Normal (0), Age: > 45 and < 65 years (1), Risk Factors: > or = 3 Risk factors for atherosclerotic disease (2), [Hypercholesterolemia] [Hypertension] [Active Smoker] [+ Family HX] Troponin: < or = 1 x Normal Limit (0). The patient was given aspirin in the Emergency Department. JOSE E Risk Score: 1 - Three or more CAD risk factors, TOTAL SCORE = 1. Data reviewed: vital signs, nurses notes, lab test result(s), EKG, radiologic studies, CT scan, plain films, ultrasound. Consideration of Admission/Observation Escalation of care including admission/observation considered. I considered the following discharge prescriptions or medication management in the emergency department Medications were administered in the Emergency Department. See MAR. Test considered but Not performed:. 10/08 17:23 Order name: Basic Metabolic Panel; Complete Time: 19:00 [facility] 10/08 17:23 Order name: CBC with Diff; Complete Time: 19: [facility] 10/08 17:23 Order name: LFT's; Complete Time: 19:00 10/08 17:23 Order name: Magnesium; Complete Time: 19:00 10/08 17:23 Order name: NT PRO-BNP; Complete Time: 19:00 10/08 17:23 Order name: PT-INR; Complete Time: 18:30 10/08 17:23 Order name: Troponin HS; Complete Time: 19:00 10/08 17:23 Order name: D-Dimer; Complete Time: 18:30 10/08 17:23 Order name: Lipase; Complete Time: 19:00 10/08 17:23 Order name: Urinalysis w/ reflexes; Complete Time: 18:30 10/08 17:23 Order name: Flu; Complete Time: 19:00 10/08 17:23 Order name: SARS RAPID; Complete Time: 19:00 10/08 20:19 Order name: Basic Metabolic Panel EDMS 10/08 20:19 Order name: Basic Metabolic Panel EDMS 10/08 20:19 Order name: CBC with Automated Diff EDMS 10/08 20:19 Order name: CBC with Automated Diff EDMS 10/08 20:19 Order name: Lipid Profile EDMS 10/08 20:19 Order name: Lipid Profile EDMS 10/08 20:19 Order name: Troponin High Sensitivity EDMS 10/08 20:19 Order name: Troponin High Sensitivity EDMS 10/08 20:22 Order name: Troponin High Sensitivity EDMS 10/08 20:22 Order name: Troponin High Sensitivity EDMS 10/08 17:23 Order name: XRAY Chest (1 view); Complete Time: 19:00 10/08 19:02 Order name: CT Chest For PE Angio; Complete Time: 20:10 10/08 19:02 Order name: US Abdomen Limited; Complete Time: 20:35 10/08 20:19 Order name: Echo with Doppler EDMS 10/08 20:19 Order name: Echo with Doppler EDMS 10/08 17:23 Order name: EKG; Complete Time: 17:24 10/08 17:23 Order name: Cardiac monitoring; Complete Time: 18:18 10/08 17:23 Order name: EKG - Nurse/Tech; Complete Time: 18:18 10/08 17:23 Order name: IV Saline Lock; Complete Time: 18:18 10/08 17:23 Order name: Labs collected and sent; Complete Time: 18:18 salome 10/08 17:23 Order name: O2 Per Protocol; Complete Time: 18:18 salome 10/08 17:23 Order name: O2 Sat Monitoring; Complete Time: 18:18 salome EC:02 Rate is 62 beats/min. Rhythm is regular. QRS Webster is Normal. IN interval is normal. QRS salome interval is normal. QT interval is normal. No Q waves. T waves are Normal. No ST changes noted. Clinical impression: Normal ECG and No evidence of ischemia. Interpreted by me. Reviewed by me. Administered Medications: 19:30 Drug: Famotidine IVP 20 mg IVP once; dilute with 10 mL 0.9% NaCl; give over 2 minutes rv Route: IVP; Site: right antecubital; 21:07 Follow up: Response: No adverse reaction; Marked relief of symptoms rv 19:30 Drug: Aspirin PO Chewable Tablet 324 mg PO once; 81 mg tablets x 4 Route: PO; rv 21:07 Follow up: Response: No adverse reaction; Marked relief of symptoms rv 19:30 Drug: morphine IVP or IV 2 mg IVP once over 4 mins Route: IVP; Infused Over: 4 mins; rv Site: right antecubital; 21:07 Follow up: Response: No adverse reaction; Marked relief of symptoms rv 19:30 Drug: Enoxaparin Sub-Q 1 mg/kg Sub-Q once Route: Sub-Q; Site: abdomen; rv 21:07 Follow up: Response: No adverse reaction; Marked relief of symptoms rv 19:42 Drug: NS 0.9% IV 1000 ml IV at 125 ml/hr continuous Route: IV; Rate: 125 ml/hr; Site: rv right antecubital; 21:07 Follow up: IV Status: Order to discontinue infusion; IV Intake: 250ml rv 21:08 Not Given (not appropriate at this timee): morphineor iv 2 mg IVP once over 4 mins rv Disposition Summary: 10/09/23 19:10 Hospitalization Ordered Notes: Hospitalization Status: Observation salome Provider: Rosa Phillips salome Condition: Stable salome Problem: new salome Symptoms: have improved salome Bed/Room Type: Standard salome Location: [facility] ER HOLD(10/09/23 20:38) cg Room Assignment: ERHOLD-(10/09/23 20:38) cg Diagnosis - Chest pain, unspecified salome - Tobacco abuse counseling salome - Tobacco use salome - Essential (primary) hypertension salome - Other cholelithiasis without obstruction salome Forms: - Medication Reconciliation Form salome - SBAR form salome - Leadership Thank You Letter salome Signatures: Dispatcher [employer] Arsalan Mendiola MD MD cha Garcia, Cindy RN RN cg Ed Ortega RN RN rv Oliver, Kathy, RN RN ko1 Corrections: (The following items were deleted from the chart) 19:10 Telemetry/MedSurg (Inpatient) salome 19:10 [facility]
--- NOTE | 2023-10-09 19:11 | ER ---
Nurse[facility] Notes [facility] Name: Miguel A Shook Age: 53 yrs Sex: Female : 1970 Arrival Date: 10/09/2023 Time: 17:17 Bed 6 Private MD: Diagnosis: Chest pain, unspecified;Tobacco abuse counseling;Tobacco use;Essential (primary) hypertension;Other cholelithiasis without obstruction Presentation: 10/08 17:26 Chief complaint: Patient states: constant pressure in chest, difficult to take a deep ko1 breath. Coronavirus screen: At this time, the client does not indicate any symptoms associated with coronavirus-19. Ebola Screen: No symptoms or risks identified at this time. Initial Sepsis Screen: Does the patient meet any 2 criteria? No. Patient's initial sepsis screen is negative. Does the patient have a suspected source of infection? No. Patient's initial sepsis screen is negative. Risk Assessment: Do you want to hurt yourself or someone else? Patient reports no desire to harm self or others. Onset of symptoms is unknown. 17:26 Method Of Arrival: Ambulatory ko1 17:26 Acuity: JJ 3 ko1 Triage Assessment: 17:29 General: Appears in no apparent distress. Behavior is calm, cooperative, appropriate ko1 for age. Pain: Complains of pain in chest. Cardiovascular: Chest pain. 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 - Social history:: Smoking status: Patient reports the use of cigarette tobacco products, smokes one pack cigarettes per day. - Family history:: not pertinent. Screenin:15 [facility] ED Fall Risk Assessment (Adult) History of falling in the last 3 months, ph including since admission No falls in past 3 months (0 pts) Confusion or Disorientation No (0 pts) Intoxicated or Sedated No (0 pts) Impaired Gait No (0 pts) Mobility Assist Device Used No (0 pt) Altered Elimination No (0 pt) Score/Fall Risk Level 0 - 2 = Low Risk Oriented to surroundings, Maintained a safe environment, Hourly rounding (assess needs \T\ fall precautionary measures) done. Abuse screen: Denies threats or abuse. Denies injuries from another. Nutritional screening: No deficits noted. Tuberculosis screening: No symptoms or risk factors identified. Assessment: 18:13 General: Appears in no apparent distress. comfortable, slender, well groomed, Behavior ph is calm, cooperative, appropriate for age, Denies fever, feeling ill. Pain: Complains of pain in anterior aspect of left upper chest and left breast Pain radiates to diaphragm Pain began 2 hours ago. Neuro: Level of Consciousness is awake, alert, obeys commands, Oriented to person, place, time, situation. Cardiovascular: Reports chest pain, Capillary refill < 3 seconds in bilateral fingers Patient's skin is warm and dry. Rhythm is sinus rhythm. Respiratory: Airway is patent Respiratory effort is even, unlabored. Derm: Skin is pink, warm \T\ dry. 19:14 General: Appears comfortable, Behavior is calm, cooperative. Pain: Complains of pain in rv chest. Neuro: Level of Consciousness is awake, alert, obeys commands, Oriented to person, place, time, situation. Cardiovascular: Capillary refill < 3 seconds Patient's skin is warm and dry. Respiratory: Airway is patent Respiratory effort is even, unlabored. GI: No signs and/or symptoms were reported involving the gastrointestinal system. : No signs and/or symptoms were reported regarding the genitourinary system. 21:30 Reassessment: informed on need for admit. Patient refused admission .Dr. Phillips was ha1 notified. Dr. Phillips explained to patient the need for admit. Vital Signs: 17:26 BP 173 / 95; Pulse 70; Resp 16; Temp 97.8; Pulse Ox 100% ; ko1 19:08 Weight 58.97 kg; Height 5 ft. 8 in. ; aa5 19:10 BP 155 / 85; Pulse 72; Resp 18; Pulse Ox 98% ; ph 19:08 Body Mass Index 19.77 (58.97 kg, 172.72 cm) aa5 Vitals: 19:10 Cardiac Rhythm Assessment Sinus rhythm. ph [place] Coma Score: 19:14 Eye Response: spontaneous(4). Motor Response: obeys commands(6). Verbal Response: rv oriented(5). Total: 15. ED Course: 17:19 Patient arrived in ED. rg4 17:22 Arsalan Holder MD is Attending Physician. salome 17:29 Triage completed. ko1 17:29 Arm band placed on right wrist. Patient placed in an exam room, on a stretcher, on ko1 cafeteria monitor, on pulse oximetry, Patient notified of wait time. 17:39 Miriam Galvan, RN is Primary Nurse. ph 17:53 XRAY Chest (1 view) In Process Unspecified. EDMS 18:13 Initial lab(s) drawn, by me, sent to lab. Urine collected: clean catch specimen, clear, ph EKG done, by ED staff, reviewed by Arsalan Holder MD COVID swab sent to lab. Flu and/or RSV swab sent to lab. Inserted saline lock: 22 gauge in right antecubital area, using aseptic technique. Blood collected. Patient maintains SpO2 saturation greater than 95% on room air. 18:14 Patient has correct armband on for positive identification. Bed in low position. Call ph light in reach. Side rails up X 1. Client placed on continuous cardiac and pulse oximetry monitoring. NIBP monitoring applied. teletypesetter monitor on. Door closed. Noise minimized. Warm blanket given. 18:15 Provided Education on: estimated time for test results and use of call light. ph 19:08 Rosa Phillips MD is Hospitalizing Provider. salome 19:15 No provider procedures requiring assistance completed. rv 19:18 CT Chest For PE Angio In Process Unspecified. EDMS 19:56 US Abdomen Limited In Process Unspecified. EDMS 21:08 Patient admitted, IV remains in place. rv Administered Medications: 19:30 Drug: Famotidine IVP 20 mg IVP once; dilute with 10 mL 0.9% NaCl; give over 2 minutes rv Route: IVP; Site: right antecubital; 21:07 Follow up: Response: No adverse reaction; Marked relief of symptoms rv 19:30 Drug: Aspirin PO Chewable Tablet 324 mg PO once; 81 mg tablets x 4 Route: PO; rv 21:07 Follow up: Response: No adverse reaction; Marked relief of symptoms rv 19:30 Drug: morphine IVP or IV 2 mg IVP once over 4 mins Route: IVP; Infused Over: 4 mins; rv Site: right antecubital; 21:07 Follow up: Response: No adverse reaction; Marked relief of symptoms rv 19:30 Drug: Enoxaparin Sub-Q 1 mg/kg Sub-Q once Route: Sub-Q; Site: abdomen; rv 21:07 Follow up: Response: No adverse reaction; Marked relief of symptoms rv 19:42 Drug: NS 0.9% IV 1000 ml IV at 125 ml/hr continuous Route: IV; Rate: 125 ml/hr; Site: rv right antecubital; 21:07 Follow up: IV Status: Order to discontinue infusion; IV Intake: 250ml rv 21:08 Not Given (not appropriate at this timee): morphineor iv 2 mg IVP once over 4 mins rv Medication: 18:15 VIS not applicable for this client. ph Intake: 21:07 IV: 250ml; Total: 250ml. rv Outcome: 19:10 Decision to Hospitalize by Provider. salome 21:08 Admitted to ER Hold. [facility]. rv 21:08 Condition: stable 21:08 Instructed on the need for admit, 21:42 Patient left the ED. rv Signatures: Dispatcher [employer] Arsalan Mendiola MD MD cha Calderon, Audri, RN RN aa5 Miriam Galvan RN RN Merline Carmona4 Ed Ortega RN RN rv Nasima White RN RN [email or web address] Leelee Panda RN RN ko1
--- NOTE | 2023-10-09 19:36 | RAD REPORT ---
EXAM DESCRIPTION: CT - Chest For Pe Angio - 10/09/2023 7:16 pm CLINICAL HISTORY: Chest pain;Dyspnea COMPARISON: Chest For Pe Angio dated 08/25/2017; Chest For Pe Angio dated 12/28/2015; Chest Single Vie w dated 10/09/2023 TECHNIQUE: Thin axial CT images of the chest were obtained following administration of 100 mL Isovue 370 IV contrast. Multiplanar reconstructions, and maximum intensity projection reconstructions were generated and reviewed. Exam utilizes a protocol for optimal evaluation of pulmonary arterial tree. All CT scans are performed using dose optimization technique as appropriate and may include automated exposure control or mA/KV adjustment according to patient size. FINDINGS: Pulmonary arteries are normal. No emboli or other suspicious finding. No acute or signific ant aorta findings. No mass or infiltrate in the lung parenchyma. No suspicious pulmonary nodules. Few subpleural cysts o r small bullae at the right apex. No pleural thickening or pleural effusion. No pneumothorax. No abnormal mediastinal or hilar masses or lymphadenopathy seen. No chest wall mass or abnormal axill iary lymphadenopathy. IMPRESSION: No evidence of acute central pulmonary emboli. No other acute pulmonary process.
--- NOTE | 2023-10-09 20:13 | P.HP ---
Certification for Inpatient Patient admitted to: Observation With expected LOS: <2 Midnights Patient will require the following post-hospital care: None Practitioner: I am a practitioner with admitting privileges, knowledge of patient current condition, hospital course, and medical plan of care. Services: Services provided to patient in accordance with Admission requirements found in Title 42 Section 412.3 of the Code of Federal Regulations Patient History Date of Service: 10/09/23 Reason for admission: Chest pressure/shortness of breath History of Present Illness: Patient is a 53-year-old female who has a history of tobacco use and hypertension as well as dyslipidemia who presents to the emergency room with chest pressure. 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 She stated that she was feeling like she had a hard time taking a deep breath. She has been seen by cardiology less than 2 years ago. At that time she had an echocardiogram and a stress test which were unremarkable. She follows up at [facility] cardiology-Dr. Quinn. She has been smoking since she was in her teens. She smokes about a pack a day. She has about a [id number] smoking history. She states she takes her blood pressure medications and her cholesterol medications religiously. In the emergency room, she had multiple diagnostic studies including labs which were unremarkable. Initial high-sensitivity troponin was negative. CT with PE protocol was negative as well. Patient had a gallbladder ultrasound with results pending. EKG completely unremarkable. Patient has multiple risk factors so decision was made to admit the patient for observation. Will repeat troponins and as long as patient's troponins remain negative and her symptoms improved anticipate discharge in the morning. She can follow-up with her bottom precipitator operator for further outpatient workup. Patient has a history of hypertension and dyslipidemia. Patient is on multiple antihypertensives as well as statin therapy. Patient denies a family history of cardiac disease. Patient does smoke but she has never been diagnosed with COPD given that she has a [id number] smoking history. Her was just diagnosed with bronchitis. Preventive medicine screening has not been done over the last few years. She definitely should follow-up with her PCP to get this evaluated especially if she is having chest pain of unknown etiology. Allergies No Known Allergies Allergy (Verified 12/28/15 03:53) Home Medications: Amlodipine Besylate See Rx Instructions .ROUTE .COMPLEX 03/28/22 Lisinopril [Zestril] 20 mg PO 03/28/22 Metoprolol Succinate [Toprol Xl] 50 mg PO DAILY 03/28/22 - Past Medical/Surgical History Diabetic: No -: Hypertension -: Dyslipidemia -: Appendectomy - Family History Mother Medical History: Hypertension, Lung disease, Diabetes Father Medical History: Hypertension, Lung disease, Diabetes Sister Medical History: Hypertension, Diabetes - Social History Smoking Status: Heavy Tobacco smoker (>10 cigarettes/day) Alcohol use: Yes CD- Drugs: No Caffeine use: No Review of Systems 10-point ROS is otherwise unremarkable Physical Examination - Vital Signs Temperature: 98 F Blood Pressure: 140/80 Pulse: 80 Respirations: 18 Pulse Ox (%): 96 - Physical Exam General: Alert, In no apparent distress, Oriented x3 HEENT: Atraumatic, PERRLA, Mucous membr. moist/pink, EOMI, Sclerae nonicteric Neck: Supple, 2+ carotid pulse no bruit, No LAD, Without JVD or thyroid abnormality Respiratory: Clear to auscultation bilaterally, Normal air movement Cardiovascular: Regular rate/rhythm, Normal S1 S2 Gastrointestinal: Normal bowel sounds, Soft and benign, Non-distended, No tenderness Musculoskeletal: No clubbing, No swelling, No tenderness Integumentary: No rashes Neurological: Normal gait, Normal speech, Normal strength at 5/5 x4 extr, Normal tone, Sensation intact, Cranial nerves 3-12 intact, Normal affect Lymphatics: No axilla or inguinal lymphadenopathy - Studies Laboratory Data (last 24 hrs) 10/09/23 10/09/23 10/09/23 18:05 18:05 18:05 WBC 8.90 Hgb 13.8 Hct 40.3 Plt Count 156 PT 10.9 INR 0.99 Sodium 136 Potassium 3.8 BUN 12 Creatinine 0.80 Glucose 109 H Magnesium 1.9 Total Bilirubin 0.3 AST 18 ALT 26 Alkaline Phosphatase 83 Lipase 56 Microbiology Data (last 24 hrs): 10/09/23 18:08 Nasopharnyx Influenza Type A Antigen Screen - Final 10/09/23 18:08 Nasopharnyx Influenza Type B Antigen Screen - Final Assessment & Plan - Problems (Diagnosis) (1) Chest pain, rule out acute myocardial infarction Current Visit: Yes Status: Acute (2) History of hypertension Current Visit: Yes Status: Acute (3) Dyslipidemia Current Visit: Yes Status: Acute (4) Tobacco use Current Visit: Yes Status: Acute - Plan Plan: 1. Chest pain rule out acute coronary syndrome; serial troponins and EKG. CT of the chest is negative. Gallbladder ultrasound is unremarkable. Labs are unremarkable. Patient recent cardiac workup about 2 years ago which was unremar kable. Echocardiogram unremarkable and due for medicine stress testing was no evidence of reversible ischemia. At this time, patient clinically doing well patient is stable for observation. Patient will be admitted and will rule out acute coronary syndrome. Will get an echocardiogram as long as there is no wall motion abnormalities anticipate discharge. 2. Hypertension and dyslipidemia; continue with antihypertensives and statin therapy 3. History of tobacco use; possible bronchitis. No evidence on imaging studies. Will go ahead and give patient steroids and inhaler therapy as needed 4. GI and DVT prophylaxis Discharge Plan: Home Plan to discharge in: 24 Hours - Advance Directives Does patient have a Living Will: No Does patient have a Durable POA for Healthcare: No - Code Status/Comfort Care Code Status Assessed: Yes Code Status: Full Code Critical Care: No Time Spent Managing PTS Care (In Minutes): 45
[2023-10-09] MEDS ORDERED: ALPRAZOLAM 0.25 MG TABLET PO PRN (20:14)
[2023-10-09] MEDS ORDERED: MORPHINE 2 MG/ML SYR IV PRN (20:14)
[2023-10-09] MEDS ORDERED: ACETAMINOPHEN 500 MG TAB PO PRN (20:14)
--- NOTE | 2023-10-09 20:19 | RAD REPORT ---
EXAM DESCRIPTION: US - Abdomen Exam Limited - 10/09/2023 7:54 pm CLINICAL HISTORY: ABD PAIN COMPARISON: Abdomen Pelvis W Contrast dated 03/27/2022 TECHNIQUE: Sonographic grayscale and color flow images of the right upper abdominal quadrant were o btained. FINDINGS: The gallbladder demonstrates numerous echogenic shadowing calculi. No pericholecystic flui d or gallbladder wall thickening. The common bile duct is normal measuring 5 mm. The liver demonstrates no findings of intrahepatic biliary dilatation. IMPRESSION: Cholelithiasis. No sonographic evidence of acute cholecystitis.
[2023-10-09 20:24] VITALS: TEMP 98
[2023-10-09] MEDS ORDERED: METOPROLOL TAR 25 MG TAB ONE (20:41)
[2023-10-09] MEDS: METOPROLOL TAR 25 MG TAB PO SCH (20:48)
[2023-10-09 21:10] VITALS: BP 175/95
[2023-10-09 21:11] VITALS: O2SAT 97; BMI 19.8
[2023-10-10] MEDS ORDERED: METHYLPREDNISOLONE 40 MG INJ IV SCH
--- NOTE | 2023-10-10 05:28 | P.DS ---
Discharge Date: 10/09/23 Disposition: AMA-LEFT AGAINST MEDICAL ADVIC Discharge Condition: GOOD Reason for Admission: Chest pressure/shortness of breath - Problems (1) Chest pain, rule out acute myocardial infarction Status: Acute (2) History of hypertension Status: Acute (3) Dyslipidemia Status: Acute (4) Tobacco use Status: Acute Brief History of Present Illness: Patient is a 53-year-old female who has a history of tobacco use and hypertension as well as dyslipidemia who presents to the emergency room with chest pressure. 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 She stated that she was feeling like she had a hard time taking a deep breath. She has been seen by cardiology less than 2 years ago. At that time she had an echocardiogram and a stress test which were unremarkable. She follows up at [facility] cardiology-Dr. Quinn. She has been smoking since she was in her teens. She smokes about a pack a day. She has about a [id number] smoking history. She states she takes her blood pressure medications and her cholesterol medications religiously. In the emergency room, she had multiple diagnostic studies including labs which were unremarkable. Initial high-sensitivity troponin was negative. CT with PE protocol was negative as well. Patient had a gallbladder ultrasound with results pending. EKG completely unremarkable. Patient has multiple risk factors so decision was made to admit the patient for observation. Will repeat troponins and as long as patient's troponins remain negative and her symptoms improved anticipate discharge in the morning. She can follow-up with her boilermaker mechanic for further outpatient workup. Patient has a history of hypertension and dyslipidemia. Patient is on multiple antihypertensives as well as statin therapy. Patient denies a family history of cardiac disease. Patient does smoke but she has never been diagnosed with COPD given that she has a [id number] smoking history. Her was just diagnosed with bronchitis. Preventive medicine screening has not been done over the last few years. She definitely should follow-up with her PCP to get this evaluated especially if she is having chest pain of unknown etiology. Hospital Course: Patient states she was feeling better. She did not feel like waiting to get the rest of her cardiac testing done because she was going to be in the emergency room and she stated that there was too much noise to where she cannot get any rest. She did not want to stay because she would rest better at home compared to the emergency room. She was informed to follow-up with her boilermaker mechanic at [facility] if she preferred to leave AGAINST MEDICAL ADVICE. Also advised her to come back to the emergency room if her pain returns. Patient signed out to leave AGAINST MEDICAL ADVICE. Vital Signs/Physical Exam: Temp Pulse Resp BP Pulse Ox 98 F 80 18 175/95 H 96 10/09/23 20:13 10/09/23 20:48 10/09/23 20:13 10/09/23 20:48 10/09/23 20:13 General: Alert, In no apparent distress, Oriented x3 Laboratory Data at Discharge: WBC 8.90 thou/uL (4.3-10.9) 10/09/23 18:05 Hgb 13.8 g/dL (12.0-15.0) 10/09/23 18:05 Hct 40.3 % (36.0-45.0) 10/09/23 18:05 Plt Count 156 thou/uL (152-406) 10/09/23 18:05 PT 10.9 SECONDS (9.5-12.5) 10/09/23 18:05 INR 0.99 10/09/23 18:05 Sodium 136 mEq/L (136-145) 10/09/23 18:05 Potassium 3.8 mEq/L (3.5-5.1) 10/09/23 18:05 BUN 12 mg/dL (7-18) 10/09/23 18:05 Creatinine 0.80 mg/dL (0.55-1.02) 10/09/23 18:05 Glucose 109 mg/dL (74-106) H 10/09/23 18:05 Magnesium 1.9 mg/dL (1.6-2.4) 10/09/23 18:05 Total Bilirubin 0.3 mg/dL (0.2-1.0) 10/09/23 18:05 AST 18 U/L (15-37) 10/09/23 18:05 ALT 26 U/L (13-56) 10/09/23 18:05 Alkaline Phosphatase 83 U/L (45-117) 10/09/23 18:05 Lipase 56 U/L (13-75) 10/09/23 18:05 Home Medications: Amlodipine Besylate See Rx Instructions .ROUTE .COMPLEX 03/28/22 Lisinopril [Zestril] 20 mg PO 03/28/22 Metoprolol Succinate [Toprol Xl] 50 mg PO DAILY 03/28/22 Physician Discharge Instructions: Patient left AGAINST MEDICAL ADVICE. Patient was advised to report back to the emergency room if her chest pain was persistent. She was also advised to follow-up with [facility] cardiology for further cardiac evaluation as soon as possible Diet: AHA Activity: Fall precautions Followup: Milad Juarez FNP [Primary Care Provider] - Time spent managing pt's care (in minutes): 20
[2023-10-10] MEDS ORDERED: ASPIRIN EC 81 MG TAB PO SCH (09:00)
[2023-10-10] MEDS ORDERED: ENOXAPARIN 40 MG/0.4 ML SQ SCH (09:00)
[2023-10-10] MEDS ORDERED: lisinopriL 10 MG TAB PO SCH (09:00)
--- NOTE | 2023-10-10 11:51 | EKG ---
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
== END 2023-10-09 21:44 | disposition left against medical advice (07) ==
LOC: ER 17:17 → ERHOLD 20:14
PROVIDERS: ADMIT Hospitalist; ATTEND Hospitalist
DX: R07.9 Chest pain, unspecified (principal); R06.02 Shortness of breath; I10 Essential (primary) hypertension; E78.5 Hyperlipidemia, unspecified; F17.210 Nicotine dependence, cigarettes, uncomplicated; Z71.6 Tobacco abuse counseling; K80.20 Calculus of gallbladder without cholecystitis without obstruction; Z53.29 Procedure and treatment not carried out because of patient's decision for other reasons
CPT/HCPCS: 85025; 81001; 80048; 36415; 83735; 85610; 85379; 80076; 84484; 83690; 83880; 87804 ×2; 71275; 71045; 76705; 87811; Q9967; J1650; J2270; 93005